=== PATIENT | female | born 1995 | race Caucasian/White ===

== ENCOUNTER 2024-05-06 14:59 | Inpatient (IN) | payer OTHER, SELFPAY ==
[2024-05-06] VITALS (65 sets, daily range): BP systolic 90–152; BP diastolic 47–122; PULSE 68–119; RESP 16–18; TEMP 36.4–37.3; O2SAT 81–100; BMI 35.3
[2024-05-06] MEDS: Lactated Ringers 1,000 ML 999 ML IV ×2 (15:15→16:20)
[2024-05-06 15:41] LABS: Absolute Lymphocyte Count 0.77 X10^3/uL (0.83-4.51); Absolute Neutrophil Count 9.7 X10^3/uL (2.0-7.7); Basophil# 0.02 X10^3/uL; Basophil% 0.2 % (0-1); Hematocrit 30.5 % (37-47); Hemoglobin 9.9 g/dL (12.0-15.0); Lymphocyte # 0.77 X10^3/ul (0.83-4.51); Mean Corp Hgb Conc 32.5 g/dL (32-36); Mean Corpuscular Hgb 25.6 pg (27.0-32.0); Mean Platelet Vol. 10.4 fl (6.2-12.0); Monocyte# 0.51 X10^3/uL; Monocyte% 4.6 % (0-10); NRBC Flagged by Analyzer 0 % (0-5); Neutrophil % 87.7 % (47-70); Platelet Count 228 K/mm3 (150-450); RBC Distribution Width CV 14.3 % (11.6-14.6); RBC Distribution Width SD 39.6 fl (35.1-43.9); Red Blood Count 3.86 M/mm3 (4.2-5.4); White Blood Count 11.1 K/mm3 (4.4-11.0)
[2024-05-06 16:28] LABS: HIV - WCH Non-Reactive (Nonreactive); Rubella IgG Reactive (Nonreactive); Syphilis Antibodies Non-reactive
[2024-05-06 16:38] LABS: Amphetamine Urine VISTA NEGATIVE (<1000 ng/mL); Barbiturate Urine VISTA NEGATIVE (< 200 ng/mL); Benzodiazepine Urine VISTA NEGATIVE (< 200 ng/mL); Cocaine Urine VISTA NEGATIVE (< 300 ng/mL); Ecstacy Urine VISTA NEGATIVE (< 500 ng/mL); Methadone Urine VISTA NEGATIVE (< 300 ng/mL); PCP Urine VISTA NEGATIVE (< 25 ng/mL); THC Urine VISTA NEGATIVE (< 50 ng/mL); Vista UDS pH Range 5
[2024-05-06] MEDS: fentaNYL-bupivacaine (epidural) 100 ML BAG EPIDURAL ×2 (17:02→21:23)
--- NOTE | 2024-05-06 17:43 | US_ITS ---
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 TECHNIQUE: Transabdominal TECHNICAL QUALITY: Adequate. FINDINGS: There is a single intrauterine fetus. The fetus is in a cephalic presentation. There is demonstrated cardiac activity with a heart rate of 154 bpm. There is a normal amniotic fluid volume. The largest amniotic fluid pocket measures 4.2 cm. The amniotic fluid index (SHIELA) is 6.5 cm. The placenta is not adequately seen. BIOMETRY: BPD: 10.4: Beyond ultrasound range HC: 36.7: Beyond ultrasound range AC: 37.4: 41 weeks 2 days. FL: 7.8: 39 weeks, 5 days Age by LMP: 41 weeks, 6 days. CARINE by LMP: 04/23/2024. Estimated weight: 4417 grams, +/- 663 grams. Gender: US/OB Limited With Biometrics IMPRESSION: Single live fetus in a vertex presentation. survey not performed on this exam. Cervical length is not visualized. Age by LMP: 41 weeks, 6 days. CARINE by LMP: 04/23/2024. Estimated weight: 4417 grams, +/- 663 grams. Electronically Signed: Bob Cortez MD at 20:06 EDT ,
--- NOTE | 2024-05-06 17:57 | HP.PCM.OB_ITS ---
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 presents today with complaints of pain and has been in labor since early this morning with no change. pt family reports has been 5cm since 11am. ? SROM earlier today. Pt reports has not had any ultrasound or routine lab work during this . Pt is declining GBS. PFSH PFSH Medical History Asthma Eczema Migraine Home Medications ?Medication ?Instructions ?Recorded ?Last Taken ?Type [id number] 250 1 tab PO ONCE 06/28/20 Unknown History mg-250 mg-65 mg tablet (Excedrin Extra Strength) crisaborole 2 % topical ointment 1 applic topical BID 06/28/20 Unknown History (Eucrisa) sertraline 25 mg tablet 25 mg PO DAILY #30 tabs 06/28/20 Unknown Rx Allergy/AdvReac Type Severity Reaction Status Date / Time Penicillins Allergy unknown Verified 05/30/22 12:04 Surgical History History of tonsillectomy Social History Smoking Status: Former smoker History Elective abortions Hx Para 0 Spontaneous abortions Hx # Term Pregnancies Ectopic pregnancies Hx # Pregnancies Multiple births # of living children NST FHR Rate Baby A Baseline: 145 Variability:: Moderate Accelerations:: 15 x 15 Decelerations:: Variable FHR Category:: Category I Uterine Activity:: q5min Vital Signs Vital Signs Vital Signs: 05/06/24 14:49 05/06/24 14:49 05/06/24 16:57 Pulse Rate 93 77 Blood Pressure 119/69 BP Systolic 119 BP Diastolic 69 Pulse Ox 05/06/24 16:57 05/06/24 16:59 05/06/24 16:59 Pulse Rate 119 H Blood Pressure BP Systolic BP Diastolic Pulse Ox 99 88 05/06/24 17:00 05/06/24 17:00 05/06/24 17:01 Pulse Rate 95 Blood Pressure 131/77 H 129/71 H BP Systolic 131 129 BP Diastolic 77 71 Pulse Ox 05/06/24 17:01 05/06/24 17:02 05/06/24 17:02 Pulse Rate 96 97 Blood Pressure BP Systolic BP Diastolic Pulse Ox 100 05/06/24 17:06 05/06/24 17:06 05/06/24 17:07 Pulse Rate 101 H 106 H Blood Pressure 129/70 H BP Systolic 129 BP Diastolic 70 Pulse Ox 05/06/24 17:07 05/06/24 17:11 05/06/24 17:11 Pulse Rate 102 H Blood Pressure 116/57 L BP Systolic 116 BP Diastolic 57 Pulse Ox 97 05/06/24 17:12 05/06/24 17:12 05/06/24 17:17 Pulse Rate 106 H Blood Pressure 152/122 H BP Systolic 152 BP Diastolic 122 Pulse Ox 99 05/06/24 17:17 05/06/24 17:17 05/06/24 17:22 Pulse Rate 106 H 102 H Blood Pressure BP Systolic BP Diastolic Pulse Ox 98 05/06/24 17:22 05/06/24 17:24 05/06/24 17:24 Pulse Rate 103 H Blood Pressure 100/50 L BP Systolic 100 BP Diastolic 50 Pulse Ox 98 05/06/24 17:26 05/06/24 17:26 05/06/24 17:27 Pulse Rate 93 92 Blood Pressure 99/50 L BP Systolic 99 BP Diastolic 50 Pulse Ox 05/06/24 17:27 05/06/24 17:32 05/06/24 17:32 Pulse Rate 97 Blood Pressure 112/58 L BP Systolic 112 BP Diastolic 58 Pulse Ox 100 05/06/24 17:32 05/06/24 17:32 05/06/24 17:33 Pulse Rate 98 93 Blood Pressure BP Systolic BP Diastolic Pulse Ox 97 05/06/24 17:33 05/06/24 17:37 05/06/24 17:37 Pulse Rate 83 Blood Pressure BP Systolic BP Diastolic Pulse Ox 89 99 05/06/24 17:38 05/06/24 17:38 05/06/24 17:40 Pulse Rate 84 111 H Blood Pressure 116/59 L BP Systolic 116 BP Diastolic 59 Pulse Ox 05/06/24 17:40 05/06/24 17:41 05/06/24 17:41 Pulse Rate 86 Blood Pressure 115/63 BP Systolic 115 BP Diastolic 63 Pulse Ox 94 05/06/24 17:42 05/06/24 17:42 05/06/24 17:47 Pulse Rate 89 98 Blood Pressure BP Systolic BP Diastolic Pulse Ox 99 05/06/24 17:47 05/06/24 17:48 05/06/24 17:48 Pulse Rate 93 Blood Pressure 123/62 H BP Systolic 123 BP Diastolic 62 Pulse Ox 93 05/06/24 17:48 05/06/24 17:51 05/06/24 17:51 Pulse Rate 102 H Blood Pressure 117/58 L BP Systolic 117 BP Diastolic 58 Pulse Ox 90 05/06/24 17:52 05/06/24 17:52 Pulse Rate 103 H Blood Pressure BP Systolic BP Diastolic Pulse Ox 100 Weight Weight: 87.7 kg Body Mass Index (BMI) 35.3 Physical Exam Narrative Bedside ultrasound: confirms vertex- membranes infront of head. VE: Bulging membranes- ballooning into vagina- No cord palpable. AROM perfomed light to moderate meconium - large amt. 6/70/-2. Const alert and oriented x3 General Appearance: cooperative HEENT normocephalic GI GI Narrative: Gravid, non tender to palpation. OB / External & Speculum: external exam normal Extremity normal to inspection Skin no rashes or lesions noted Neuro oriented x3 and CN's II-XII intact bilaterally Psych Appearance: grossly normal Labs Labs Labs: Antibody Screen NEGATIVE Hct 30.5 % (37-47) L Hgb 9.9 g/dL (12.0-15.0) L Obstetrics Ultrasound Syphilis Total Ab Non-reactive VZV IgG Antibody < 135 index (Immune >165) L Rubella IgG Antibody Reactive (Nonreactive) Hep Bs Antigen Non-Reactive (Nonreactive) Hepatitis C Antibody Non-Reactive (Nonreactive) HIV 1&2 Antibody Non-Reactive (Nonreactive) Miscellaneous Test Assessment & Plan (1) with 41 completed weeks gestation: (2) No care in current : QUALIFIERS: Trimester: third trimester Qualified Code(s): O09.33 - Supervision of with insufficient care, third trimester (3) Obesity affecting in third trimester: QUALIFIERS: Obesity type affecting : unspecified obesity Qualified Code(s): O99.213 - Obesity complicating , third trimester (4) Meconium in amniotic fluid affecting management of mother: QUALIFIERS: Fetus number: single or unspecified fetus Trimester: third trimester Qualified Code(s): O36.8930 - Maternal care for other specified problems, third trimester, not applicable or unspecified PLAN: Plan Admit to L&D Mont[facility] FHR/TOCO Epidural for pain Monitor VS Discussed augmenting with pitocin- will give 2 hrs to see if she makes cervical change. pt agreeable official ultrasound for Growth ordered /anomalies total weight gain in 23# Est Gest age 41-42 weeks - uncertain per patient Meconium- will have peds and respiratory present for delivery
[2024-05-06 18:03] LABS: Hepatitis B Surface Antigen Non-Reactive (Nonreactive); Hepatitis C Antibody Non-Reactive (Nonreactive)
[2024-05-06 18:29] LABS: Mucous, Urine 0 SEEN /hpf (<or=2+); Squamous Epithelial Cells - UA 0 SEEN /hpf (5-10)
[2024-05-06 18:32] LABS: Color, Urine Yellow (Yellow); Glucose, Dipstick Normal (Normal); Leukocyte Esterase-Dipstick Negative /ul (Negative); Nitrite-Dipstick Negative (Negative); Occult Blood-Urine 150 /ul (Negative); Protein-Dipstick Negative (Negative); Urine Bilirubin Dipstick Negative (Negative); Urine Clarity Clear (Clear); Urine Urobilinogen Normal (Normal)
[2024-05-06 18:53] LABS: Bacteria 1+ /hpf (None Seen); Ketone-Dipstick 150 mg/dl (Negative)
[2024-05-06 18:54] LABS: Red Blood Cells-Urine 0-5 SEEN /hpf (0-5); White Blood Cells 0-5 SEEN /hpf (0-5)
[2024-05-06] MEDS: Lactated Ringers 1,000 ML 200 ML IV (19:11)
--- NOTE | 2024-05-06 20:47 | PN.OBGYN_ITS ---
Subjective Subjective Patient continues to be evaluated at bedside. Comfortable with epidural anesthesia. Denies any pain. Objective Data Objective Data Vital Signs: Vital Signs Temp Pulse Resp BP Pulse Ox 99.1 F 107 H 16 115/62 100 05/06/24 19:23 05/06/24 19:51 05/06/24 19:23 05/06/24 19:45 05/06/24 19:51 Weight: 193 lb 5.526 oz Body Mass Index (BMI) 35.3 Intake & Output: Intake and Output for Last 24 Hours 05/04/24 05/05/24 05/06/24 23:59 23:59 23:59 Intake Total 1969.50 / 1969.50 Output Total 900 / 900 Balance 1069.50 / 1069.50 Lab / Micro Data 05/06/24 15:15 Labs: Laboratory Results - last 24 hr 05/06/24 15:15: WBC 11.1 H, RBC 3.86 L, Hgb 9.9 L, Hct 30.5 L, MCV 79.0 L, MCH 25.6 L, MCHC 32.5, RDW Std Deviation 39.6, RDW Coeff of Shahrzad 14.3, Plt Count 228, MPV 10.4, Immature Gran % (Auto) 0.500, Neut % (Auto) 87.7 H, Lymph % (Auto) 7.0 L, [place] % (Auto) 4.6, Eos % (Auto) 0.0, Baso % (Auto) 0.2, Absolute Neuts (auto) 9.7 H, Absolute Lymphs (auto) 0.77 L, Nucleated RBC % 0, Urine Color Yellow, Urine Clarity Clear, Urine pH 5.0, Ur Specific [place] 1.010, Urine Protein Negative, Urine Glucose (UA) Normal, Urine Ketones 150 A*, Urine Occult Blood 150 H, Urine Nitrite Negative, Urine Bilirubin Negative, Urine Urobilinogen Normal, Ur Leukocyte Esterase Negative, Urine RBC 0-5 SEEN, Urine WBC 0-5 SEEN, Ur Squamous Epith Cells 0 SEEN, Urine Bacteria 1+, Urine Mucus 0 SEEN, Urine Opiates Screen NEGATIVE, Urine Methadone Screen NEGATIVE, Ur Barbiturates Screen NEGATIVE, Ur Phencyclidine Scrn NEGATIVE, Ur Amphetamines Screen NEGATIVE, MDMA (Ecstasy) Screen NEGATIVE, U Benzodiazepines Scrn NEGATIVE, Urine Cocaine Screen NEGATIVE, U Cannabinoids Screen NEGATIVE, Ur Drug Screen Comment , Syphilis Total Ab Non-reactive, Hep Bs Antigen Non-Reactive, Hepatitis C Antibody Non- Reactive, HIV 1&2 Antibody Non-Reactive, Rubella IgG Antibody Reactive, Antibody Screen NEGATIVE Micro: Microbiology 05/06/24 15:15 Genital vaginal Chlamydia trachomatis (PCR) - Final 05/06/24 15:15 Genital vaginal Neisseria gonorrhoeae (PCR) - Final Radiography Diagnostic Testing: Radiology Impression Obstetrics Ultrasound 05/06/24 17:43 IMPRESSION: Single live fetus in a vertex presentation. survey not performed on this exam. Cervical length is not visualized. Age by LMP: 41 weeks, 6 days. CARINE by LMP: 04/23/2024. Estimated weight: 4417 grams, +/- 663 grams. Electronically Signed: Bob Cortez MD at 20:06 EDT , Physical Exam Const alert and no apparent distress General Appearance: cooperative and comfortable Exam Limitations: no limitations HEENT normocephalic Eyes General Eye: normal appearance of both eyes Neck full ROM General: normal visual inspection Chest Chest: symmetrical chest wall rise Resp normal respiratory effort and normal air movement Effort and Inspection: symmetric chest movement Auscultation: clear to auscultation bilaterally Cardio regular rate and regular rhythm GI normal to inspection, nondistended, normoactive bowel sounds Back/Spine normal ROM Extremity full ROM and no calf tenderness General Extremity: normal exam except as noted Skin no rashes or lesions noted Neuro CN's II-XII intact bilaterally Psych mental status grossly normal Assessment & Plan (1) Meconium in amniotic fluid affecting management of mother: QUALIFIERS: Fetus number: single or unspecified fetus Trimester: third trimester Qualified Code(s): O36.8930 - Maternal care for other specified problems, third trimester, not applicable or unspecified (2) Obesity affecting in third trimester: QUALIFIERS: Obesity type affecting : unspecified obesity Qualified Code(s): O99.213 - Obesity complicating , third trimester (3) No care in current : QUALIFIERS: Trimester: third trimester Qualified Code(s): O09.33 - Supervision of with insufficient care, third trimester (4) with 41 completed weeks gestation: PLAN: Plan CE 6.5/70/-2 - exam remains unchanged Unable to start Pitocin IV due to category 2 tracing at times Exam discussed with patient and Dr. Kiran viewing strip and involved with plan of care Will reevaluate and complete CE in 2 hours to determine vs PC/S - patient agrees with plan of care
[2024-05-06] MEDS: Acetaminophen 500 MG Tablet PO (22:37)
[2024-05-06] MEDS: Sodium Citrate/Citric Acid 30 ML UDC PO (22:37)
--- NOTE | 2024-05-06 22:39 | PCM.PN.BLA ---
Progress Note pt was checked by ANN Arango cervical exam unchanged. Pt was counseled on Primary cs and inability to start pitocin due to recurrent decelerations- category 2 tracing. No descent of head, EFW >4400Grams, prominent pubic arch- suspect CPD. Pt agreeable to proceed with primary cs. OR notified. PRE OP abx ordered.
[2024-05-06] MEDS: Cefazolin 2 GM in 0.9% Normal Saline (100mL Bag) 100 ML IV (22:45)
--- NOTE | 2024-05-06 23:31 | EX.PCM.OBRPT ---
Details Operative Information Date of Procedure: 05/06/24 Pre-Operative Diagnosis: Category 2 tracing, suspected CPD, arrest of dilation, Meconium, No care, 41-42 weeks gestation, Obesity in , anemia in Post-Operative Diagnosis: same, Live male , Indications for : Suspected cephalopelvic disproportion Indications Narrative: Contractions not adequate however due to category 2 FHR tracing unable to start pitocin, pt did not make cervical change past 6cm for >4hrs. 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 She was then placed in the supine position. She was prepped and draped in the normal sterile fashion. Epidural Anesthesia was found to be adequate. At this time a Pfannenstiel skin incision was made with a knife was carried down to the underlying layer of the fascia. The fascial incision was then extended laterally using gentle opposing traction. Attention was then turned to the superior aspect of the fascial edge was grasped with 2 straight Enmanuel clamps tented up and the rectus muscle dissected off sharply. Rectus muscles were then in the midline bluntly and peritoneum was entered bluntly. Gentle opposing traction was placed. At this time the vesicouterine peritoneum was identified. Scalpel was used to make a uterine incision in a low transverse fashion. The uterus was then entered bluntly gentle opposing traction was placed to extend this incision. thick meconium noted. Infant's head was brought to the uterine incision was delivered atraumatically. Body cord x 1 noted. Cord was clamped and cut infant handed to the waiting nursery team. The Placenta was removed from the uterus. The uterus was then removed from the abdominal cavity. The uterus was cleared of all clots and debris using a lap. At this time the uterine incision was reapproximated using #1 Vicryl in a running locked fashion. Hemostasis was appreciated. Posterior cul-de-sac was then cleared of all clots and debris. Uterus was placed back in the abdominal cavity. Gutters were cleared of all clots and debris. Uterine incision was reevaluated and noted to be of excellent hemostasis. At this time the peritoneum was grasped with Kellys reapproximated using #2 Vicryl suture in a running fashion. Rectus muscle reapproximated with 2-0 vicryl in running mattress suture fashion. Fascia was then reapproximated using #1 Vicryl in a running fashion. Subcu layer was irrigated with NS, reapproximated with #2 0 plain gut suture in an interrupted fashion. Subcu layer was closed using 4-0 Viryl in a subcu fashion. Dry sterile dressing was applied. Instrument lap needle count correct ?2. Anticipated normal postoperative course. Presentation: Positive for Vertex Amniotic Membrane Rupture Type: Spontaneous (? time at home - meconium ) Amniotic Fluid Description: Thick meconium Placental Delivery Description: Expressed Placenta Disposition: [facility] Cord Vessel Description: 3 Vessels Cord Entanglement: - (body cord x1 loose ) Nuchal Cord Compression: With compression Cord Gases: ABG and VBG Infant A Gender: Male (1 minute): 2 (5 minute): 8 Delayed Cord Clamping: No Complications Risks of Surgery Discussed w/Patient: Bleeding, Anesthesia Risks, Infection and Injury to surrounding structure(s) including bowel and bladder Complications: none
[2024-05-06] MEDS: Azithromycin 500 MG in Dextrose 5%-Water (250mL Bag) 250 ML 250 MG IV (23:50)
[2024-05-07] VITALS (17 sets, daily range): BP systolic 95–125; BP diastolic 54–79; PULSE 75–97; RESP 16; TEMP 36.5–37.1; O2SAT 94–100
[2024-05-07] MEDS: Oxytocin 15 Units/NS 250ml 15 UNITS/250 ML IV.SOLN 83 UNITS IV
[2024-05-07] MEDS: Ketorolac 30 MG/ML Syringe IV ×4 (00:43→18:11)
[2024-05-07] MEDS: Lactated Ringers 1,000 ML 100 ML IV (03:09)
[2024-05-07] MEDS: Acetaminophen 500 MG Tablet 1000 MG PO ×3 (04:53→18:10)
[2024-05-07 07:08] LABS: Hematocrit 26.2 % (37-47); Hemoglobin 8.4 g/dL (12.0-15.0); Mean Corp Hgb Conc 32.1 g/dL (32-36); Mean Corpuscular Hgb 25.8 pg (27.0-32.0); Mean Corpuscular Volume 80.6 fL (81-99); Mean Platelet Vol. 10.5 fl (6.2-12.0); Platelet Count 185 K/mm3 (150-450); RBC Distribution Width CV 14.5 % (11.6-14.6); RBC Distribution Width SD 40.6 fl (35.1-43.9); Red Blood Count 3.25 M/mm3 (4.2-5.4); White Blood Count 9.4 K/mm3 (4.4-11.0)
--- NOTE | 2024-05-07 08:21 | PCM.PN.CNM ---
Subjective Subjective Patient seen at bedside. Resting. Has not ambulated today. with support. Objective Data Objective Data Vital Signs: Vital Signs Temp Pulse Resp BP Pulse Ox O2 Del Method 98.3 F 80 16 106/66 97 Room Air 05/07/24 04:58 05/07/24 05:50 05/07/24 05:50 05/07/24 04:58 05/07/24 05:50 05/07/24 05:50 Oxygen Delivery Method Room Air Weight: 193 lb 5.526 oz Body Mass Index (BMI) 35.3 Intake & Output: Intake and Output for Last 24 Hours 05/05/24 05/06/24 05/07/24 23:59 23:59 23:59 Intake Total 2776.17 / 2776.17 505 / 505 Output Total 1500 / 1500 2900 / 2900 Balance 1276.17 / 1276.17 -2395 / -2395 Lab / Micro Data 05/07/24 06:53 Labs: Laboratory Results - last 24 hr 05/06/24 15:15: WBC 11.1 H, RBC 3.86 L, Hgb 9.9 L, Hct 30.5 L, MCV 79.0 L, MCH 25.6 L, MCHC 32.5, RDW Std Deviation 39.6, RDW Coeff of Shahrzad 14.3, Plt Count 228, MPV 10.4, Immature Gran % (Auto) 0.500, Neut % (Auto) 87.7 H, Lymph % (Auto) 7.0 L, [place] % (Auto) 4.6, Eos % (Auto) 0.0, Baso % (Auto) 0.2, Absolute Neuts (auto) 9.7 H, Absolute Lymphs (auto) 0.77 L, Nucleated RBC % 0, Urine Color Yellow, Urine Clarity Clear, Urine pH 5.0, Ur Specific [place] 1.010, Urine Protein Negative, Urine Glucose (UA) Normal, Urine Ketones 150 A*, Urine Occult Blood 150 H, Urine Nitrite Negative, Urine Bilirubin Negative, Urine Urobilinogen Normal, Ur Leukocyte Esterase Negative, Urine RBC 0-5 SEEN, Urine WBC 0-5 SEEN, Ur Squamous Epith Cells 0 SEEN, Urine Bacteria 1+, Urine Mucus 0 SEEN, Urine Opiates Screen NEGATIVE, Urine Methadone Screen NEGATIVE, Ur Barbiturates Screen NEGATIVE, Ur Phencyclidine Scrn NEGATIVE, Ur Amphetamines Screen NEGATIVE, MDMA (Ecstasy) Screen NEGATIVE, U Benzodiazepines Scrn NEGATIVE, Urine Cocaine Screen NEGATIVE, U Cannabinoids Screen NEGATIVE, Ur Drug Screen Comment , Syphilis Total Ab Non-reactive, Hep Bs Antigen Non-Reactive, Hepatitis C Antibody Non-Reactive, HIV 1&2 Antibody Non-Reactive, Rubella IgG Antibody Reactive, Antibody Screen NEGATIVE 05/07/24 05:52: WBC Cancelled, Corrected WBC Cancelled, RBC Cancelled, Hgb Cancelled, Hct Cancelled, MCV Cancelled, MCH Cancelled, MCHC Cancelled, RDW Std Deviation Cancelled, RDW Coeff of Shahrzad Cancelled, Plt Count Cancelled, MPV Cancelled, Diff Path Review Cancelled 05/07/24 06:53: WBC 9.4, RBC 3.25 L, Hgb 8.4 L, Hct 26.2 L, MCV 80.6 L, MCH 25.8 L, MCHC 32.1, RDW Std Deviation 40.6, RDW Coeff of Shahrzad 14.5, Plt Count 185, MPV 10.5 Micro: Microbiology 05/06/24 15:15 Genital vaginal Chlamydia trachomatis (PCR) - Final 05/06/24 15:15 Genital vaginal Neisseria gonorrhoeae (PCR) - Final Radiography Diagnostic Testing: Radiology Impression Obstetrics Ultrasound 05/06/24 17:43 IMPRESSION: Single live fetus in a vertex presentation. survey not performed on this exam. Cervical length is not visualized. Age by LMP: 41 weeks, 6 days. CARINE by LMP: 04/23/2024. Estimated weight: 4417 grams, +/- 663 grams. Electronically Signed: Bob Cortez MD at 20:06 EDT , ROS Eyes Eyes: Denies blurry vision, change in vision or spots in vision ENT HEENT: Denies dizziness or headache(s) Cardiovascular Cardiovascular: Denies abdominal pain, chest pain or dyspnea Respiratory/Chest Respiratory/Chest: Denies cough, dyspnea, shortness of breath at rest or shortness of breath with exertion Gastrointestinal Gastrointestinal: Denies abdominal pain, diarrhea or vomiting Genitourinary Genitourinary: Denies change in urinary stream, difficulty urinating or dysuria Musculoskeletal Musculoskeletal: Reports none Integumentary Integumentary: Denies rash Neurologic Neurologic: Denies dizziness, headache(s), memory loss or weakness Assessment & Plan (1) Status post delivery: (2) Care and examination of lactating mother: (3) Meconium in amniotic fluid affecting management of mother: QUALIFIERS: Fetus number: single or unspecified fetus Trimester: third trimester Qualified Code(s): O36.8930 - Maternal care for other specified problems, third trimester, not applicable or unspecified (4) Obesity affecting in third trimester: QUALIFIERS: Obesity type affecting : unspecified obesity Qualified Code(s): O99.213 - Obesity complicating , third trimester (5) No care in current : QUALIFIERS: Trimester: third trimester Qualified Code(s): O09.33 - Supervision of with insufficient care, third trimester (6) with 41 completed weeks gestation: PLAN: Plan POD 1 Primary C/S Pain control support Increase ambulation today
[2024-05-07] MEDS: 0.9% Saline Lock 10 ML Syringe IV (12:51)
[2024-05-07] MEDS: Enoxaparin 40 MG/0.4 ML Syringe SC (12:51)
[2024-05-08] MEDS: Ibuprofen 600 MG Tablet PO ×4 (00:17→21:08)
[2024-05-08] MEDS: Acetaminophen 500 MG Tablet 1000 MG PO ×4 (00:18→18:20)
[2024-05-08 00:30] VITALS: BP 114/81; PULSE 77; RESP 16; TEMP 36.3; O2SAT 99
[2024-05-08] MEDS: oxyCODONE 5 MG Tablet PO ×4 (03:24→20:03)
[2024-05-08 03:25] VITALS: BP 122/86; PULSE 88; RESP 16; TEMP 37.2; O2SAT 98
[2024-05-08] MEDS: Senna/Docusate Sodium 1 Tablet PO (09:15)
[2024-05-08 09:30] VITALS: BP 114/67; PULSE 68; RESP 14; TEMP 36.6; O2SAT 98
--- NOTE | 2024-05-08 09:32 | PCM.PN.CNM ---
Subjective Subjective Patient seen at bedside. Denies headache, vision changes, SOB or CP. Ambulating and voiding without difficulty. Passing flatus. Lochia decreased. Objective Data Objective Data Vital Signs: Vital Signs Temp Pulse Resp BP Pulse Ox O2 Del Method 99 F 88 16 122/86 H 98 Room Air 05/08/24 03:25 05/08/24 03:25 05/08/24 03:25 05/08/24 03:25 05/08/24 03:25 05/08/24 03:25 Oxygen Delivery Method Room Air Weight: 193 lb 5.526 oz Body Mass Index (BMI) 35.3 Intake & Output: Intake and Output for Last 24 Hours 05/06/24 05/07/24 05/08/24 23:59 23:59 23:59 Intake Total 2776.17 / 2776.17 1136.67 / 1136.67 Output Total 1500 / 1500 4300 / 4300 Balance 1276.17 / 1276.17 -3163.33 / -3163.33 Lab / Micro Data Attestation: I reviewed the patient's lab results. 05/07/24 06:53 Micro: Microbiology 05/06/24 15:15 Genital vaginal Chlamydia trachomatis (PCR) - Final 05/06/24 15:15 Genital vaginal Neisseria gonorrhoeae (PCR) - Final ROS Eyes Eyes: Denies blurry vision, spots in vision or tunnel vision ENT HEENT: Denies dizziness or headache(s) Cardiovascular Cardiovascular: Reports systems reviewed and no addt'l complaints, except as documented, dizziness and dyspnea Respiratory/Chest Respiratory/Chest: Reports systems reviewed and no addt'l complaints, except as documented Gastrointestinal Gastrointestinal: Reports systems reviewed and no addt'l complaints, except as documented Genitourinary Genitourinary: Reports systems reviewed and no addt'l complaints, except as documented Neurologic Neurologic: Denies abnormal speech, dizziness, headache(s), syncope or vertigo Psychiatric Psychiatric: Reports systems reviewed and no addt'l complaints, except as documented Physical Exam Const alert and no apparent distress General Appearance: cooperative Orientation / Consciousness: awake, oriented to person and oriented to place Exam Limitations: no limitations HEENT normocephalic Eyes General Eye: normal appearance of both eyes Neck full ROM Chest Chest: symmetrical chest wall rise Resp normal respiratory effort, normal air movement and clear to auscultation bilaterally Auscultation: clear to auscultation bilaterally Cardio regular rate and regular rhythm GI normal to inspection, nondistended, normoactive bowel sounds Uterus Palpation: uterus fundus firm Extremity full ROM and no calf tenderness Skin no rashes or lesions noted Neuro oriented x3 Psych mental status grossly normal and activity/motor behavior normal Assessment & Plan (1) Care and examination of lactating mother: (2) Status post delivery: PLAN: Plan POD 2 Primary C/S Infant in SCN for blood sugars/feeding concerns due to cleft palate / pumping Pain controlled Ambulating independently and voiding/ passing flatus Anticipate discharge tomorrow
[2024-05-08 09:38] LABS: Absolute Lymphocyte Count 1.08 X10^3/uL (0.83-4.51); Absolute Neutrophil Count 7.1 X10^3/uL (2.0-7.7); Basophil# 0.02 X10^3/uL; Basophil% 0.2 % (0-1); Eosinophil# 0.02 X10^3/uL; Eosinophils% 0.2 % (0-5); Hematocrit 27.6 % (37-47); Hemoglobin 8.6 g/dL (12.0-15.0); Lymphocyte # 1.08 X10^3/ul (0.83-4.51); Mean Corp Hgb Conc 31.2 g/dL (32-36); Mean Corpuscular Hgb 25.6 pg (27.0-32.0); Mean Corpuscular Volume 82.1 fL (81-99); Mean Platelet Vol. 10.4 fl (6.2-12.0); Monocyte# 0.68 X10^3/uL; Monocyte% 7.6 % (0-10); NRBC Flagged by Analyzer 0 % (0-5); Neutrophil # 7.13 X10^3/uL (2.7-7.7); Neutrophil % 79.6 % (47-70); Platelet Count 198 K/mm3 (150-450); RBC Distribution Width CV 14.7 % (11.6-14.6); RBC Distribution Width SD 42.4 fl (35.1-43.9); Red Blood Count 3.36 M/mm3 (4.2-5.4)
[2024-05-08 13:28] VITALS: BP 128/81; PULSE 83; RESP 14; TEMP 36.8; O2SAT 98
--- NOTE | 2024-05-08 14:45 | EX.CON.LACT ---
Assessment & Plan Assessment/Plan (1) Care and examination of lactating mother: PLAN: Plan as listed below. HPI Consult Data Date of Consult: 05/08/24 HPI Narrative HPI Narrative: DARRIN RODRÍGUEZ, is a 28 F who presents for pumping and latching assessment. History provided by the patient. [facility] Medical History Asthma Eczema Migraine Home Medications ?Medication ?Instructions ?Recorded ?Last Taken ?Type mwgloyy-tcahuaqyglhhq-ucupwmfr 250 1 tab PO ONCE 06/28/20 Unknown History mg-250 mg-65 mg tablet (Excedrin Extra Strength) crisaborole 2 % topical ointment 1 applic topical BID 06/28/20 Unknown History (Eucrisa) sertraline 25 mg tablet 25 mg PO DAILY #30 tabs 06/28/20 Unknown Rx Allergy/AdvReac Type Severity Reaction Status Date / Time Penicillins Allergy unknown Verified 05/30/22 12:04 Surgical History History of tonsillectomy Social History Smoking Status: Former smoker ROS Integumentary Integumentary: Reports other Details: attempting to latch q 3 hours baby in SCN, latching with shield and getting EBM/donor milk by syringe, baby has NG at this time as well, seeing Speech therapy tomorrow, patient concerned with pumping volumes (was getting 5-6 cc yesterday and now 1-2 today) Exam General alert Respiratory Respiratory: normal respiratory effort Skin normal color bilateral nipples slight pink Feeding Assessment Feeding Assessment Feed Type: Breastmilk and Donor Milk [place] Feeding Methods: Breast, Bottle, Cleft palate nipple and Alternative-syringe Position: Cross cradle Feeding Aids Currently Using: Nipple reed and Pumping Latch Score L - Latch Latch: Repeated attempts, holds nipple in mouth, stimulate to suck (1) A - Audible Swallowing Audible Swallowing: A few with stimulation (1) (also using syringe when latching ) T - Type of Nipple Type of Nipple: Everted (after stimulation) (2) C - Comfort (Breast/Nipple) Comfort (Breast/Nipple): Filling/reddened/small blisters/bruises/mild/moderate discomfort (1) H - Hold (Positioning) Hold (Positioning): Full assist (staff holds infant at breast) (0) (full assist by [facility] RN ) Total Score Total Score:: 5 Observation Feeding Observed:: Yes IBCLC Feeding Assessment Feeding Assessment Mother's feeding plans during 's hospitalization: Breastfeed Feeding Plan Feeding Plan: Will continue current plan in SCN, attempting to latch and practice with shield and then will work with cleft nipple and NG as needed. Getting evaluated by speech therapy tomorrow. Fitted for correct pump flange size and recommended 21. Also adjust pump settings and plan written out for patient. Interventions IBCLC/CLC Interventions: Nipple shield and Pumping Charges/Coding Visit Charges Inpatient E&M: 59662 Init Hosp L1
--- NOTE | 2024-05-08 17:05 | CASEMGMT ---
Social Work Assessment Labor and Delivery Unit Patient Address:[address] [place] [id number] Phone number: Date of Referral: 05/08/24 Time of Referral: 05:04 Referred By: Lisbet Broderick Date of Intervention: 05/08/24? Time of Intervention: 17:06 Reason for Referral: Mental Health History obtained from: Medical records, mother of baby (MOB) America Flores and father of baby (FOB) Yahir Flores. Household composition: MOB, FOB and baby/son Georgi (born 05/06/24) Patient's parent/guardian status:? MOB and FOB are and both will provide care to baby. Parents have been together for 7 years and for 2. Medical History: ?Neither MOB or FOB have any other children. Current was being monitored by 2 midwives (Veronica Maciel and her mother Trisha Maciel) and THEA didn?t? have routine care outside of her midwives.? THEA presented to the hospital after having been in active labor without progress for over 12 hours at home.? MOB reported she was exhausted. MOB ended up having to have a . Baby was born with a cleft palate which MOB stated may interfere with her ability to breastfeed.? MOB stated she will still plan on pumping and giving baby breastmilk however she can. Baby?s weight: 7 pounds, 10oz.? Apgars: 2 and 8. Milk Wagon Driver: Dr. Rosalind Bridges and Dr. Franko Bae. ? Educational Status: MOB: High School graduate. 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 MOB reported she?s going to be a stay at home mom.? FOB is also a High School graduate and went to trade school for welding.? FOB works horse race timer . ?? Financial Status: MOB and FOB reported their income is enough to meet the needs of their family at this time. Supplies: MOB and FOB reported they have everything they need for baby including but not limited to: Car seat, bassinet, clothing and diapers. Childcare/Caregiver(s): MOB was identified as the primary caregiver for baby as she is going to e a stay at home mom. Other family members and friends will be able to help as needed.? ? Transportation: Reliable.? MOB and FOB reported they drive and have reliable transportation to get their son to and from all of his doctor?s appointments. ?? Programs/Agencies Involved: None at this time. ?? Children Services/Legal Issues: Denied. ??? Behavioral Health Issues: ??Mental Health History: THEA reported she has a history of anxiety, depression and PTSD. THEA used to be involved with [facility] in [place] which she described as ?life changing?.? MOB reported her plan is to get re-involved with them now that she?s given . ?THEA reported she experienced increased levels of depression in April due to feeling a lot of pressure to be induced which she stated stressed her out so she began to withdraw. THEA reported she?s feeling better now that her son is born. JOVANI reported he may have experienced some anxiety when he was younger because he was an only child however denied any anxiety or any other mental health issues as an adult. ??Substance Use History: MOB and FOB reported occasional/social alcohol consumption however stated neither have drank since MOB became . Both denied any abuse. ?Family History: Not reported. ?Drug Screens: Negative? Family/Social Stressors:? Baby is currently in Special Care for an unknown amount of time. Support Systems: Strong.? MOB and FOB report a strong family network. Depression/Shaken Baby/Safe Sleeping: knockdown worker provided both verbal and written education to MOB and FOB in regards to PPD, Shaken Baby and Safe Sleeping.? Both verbalized they understood. ??? ASSESSMENT: Both MOB an FOB consented to social work visit. Patient?s brother and other visitors were leaving at the time of arrival. MGM stayed which MOB and FOB were both agreeable to. ?At the time of the visit, baby was in the Special Care Nursery.? MOB and FOB were very engaged during the visit and expressed an appreciation of education and resources.? knockdown worker observed positive interaction between everyone at the time of the visit and everyone appeared to be supportive and bonded to one another.? knockdown worker asked FOB and MGM to leave the room so hospice social worker could speak with MOB alone which everyone was agreeable to.? MOB denied any concerns of domestic violence, other mental health issues, drug or alcohol abuse.? MOB reported she feels safe at home and described her as a strong support. ? Safe Plan of Care for infant related to substance use: Not needed; N/A??? PLAN:? Measurement And Verification Engineer also provided written material on available community resources including Help Me Grow. No other services requested or indicated. Rosalind Larson, MUSEUM OR ZOO DIRECTOR, OUTSIDE REPAIRER SPECIAL
[2024-05-08 19:55] VITALS: BP 132/89; PULSE 73; RESP 16; TEMP 37.1; O2SAT 99
[2024-05-09] MEDS: Acetaminophen 500 MG Tablet 1000 MG PO ×3 (00:18→12:59)
[2024-05-09 01:49] VITALS: BP 133/75; PULSE 72; RESP 15; TEMP 36.5; O2SAT 100
[2024-05-09] MEDS: Ibuprofen 600 MG Tablet PO ×3 (02:51→15:59)
[2024-05-09] MEDS: oxyCODONE 5 MG Tablet PO ×2 (03:21→16:43)
--- NOTE | 2024-05-09 05:20 | NURSING ---
Reviewed and agreed with [place] NGUYỄN charting.
--- NOTE | 2024-05-09 07:14 | PCM.DC.SUM ---
Providers Date of Admission: 05/06/24 Primary Care Physician: No Primary Care Phys Consultations 05/08/24 14:31 Consult: Hansard Reporter Routine Consulting Provider: Cherelle Mcmillan NP Reason for Consult: baby cleft palate EMERGENT Consult: No MD Notified: Yes Date Notified: 05/08/24 Time Notified: 14:32 Method of Notification: Verbal Reason For Visit: PRIMARY C SECTION Diagnosis Discharge Diagnosis (1) Care and examination of lactating mother: Status: Acute Code(s): Z39.1 - Encounter for care and examination of lactating mother Plan POD 2 Primary C/S in SCN for blood sugars/feeding concerns due to cleft palate / pumping Pain controlled Ambulating independently and voiding/ passing flatus Anticipate discharge tomorrow Medications at Discharge Home Medications [id number]-odivryhzkazlp-qcertyjm 250 mg-250 mg-65 mg tablet (Excedrin Extra Strength) 1 tab PO ONCE 06/28/20 crisaborole 2 % topical ointment (Eucrisa) 1 applic topical BID 06/28/20 sertraline 25 mg tablet 25 mg PO DAILY #30 tabs 06/28/20 acetaminophen 500 mg tablet 1,000 mg (2 x 500 mg) PO Q6H #0 tabs 05/09/24 ibuprofen 600 mg tablet 600 mg PO Q6H #0 tabs 05/09/24 sennosides 8.6 mg-docusate sodium 50 mg tablet (Stimulant Laxative Plus) 1 - 2 tab PO DAILY #0 tabs 05/09/24 Hospital Course Operations section Procedures None Summary of Care Provided Minutes Spent on Discharge: 15 Hospital Course: Patient had section. Hospital course was uneventful. Physical Exam Narrative Patient seen at bedside. Ambulating and voiding without difficulty. Passing flatus. Showering and walking unit. Pumping and infant being fed via syringe due to cleft palate. Infant in SCN. Patient desires d/c and to remain hotel status. Plan is to follow up with [facility] for post . Const alert and no apparent distress General Appearance: cooperative and comfortable Exam Limitations: no limitations HEENT normocephalic Eyes General Eye: normal appearance of both eyes Neck full ROM General: normal visual inspection Chest Chest: symmetrical chest wall rise Resp normal respiratory effort and normal air movement Effort and Inspection: symmetric chest movement Auscultation: clear to auscultation bilaterally Cardio regular rate and regular rhythm GI normal to inspection, nondistended, normoactive bowel sounds Back/Spine normal ROM Extremity full ROM and no calf tenderness General Extremity: normal exam except as noted Skin no rashes or lesions noted Wound Narrative: Dressing is dry and intact. Neuro CN's II-XII intact bilaterally Psych mental status grossly normal Weight / BMI Weight Weight: 193 lb 5.526 oz Body Mass Index (BMI) 35.3 ABG / Lab / Microbiology Data 05/08/24 09:25 Laboratory: Laboratory Results - last 24 hr 05/08/24 09:25: WBC 9.0, RBC 3.36 L, Hgb 8.6 L, Hct 27.6 L, MCV 82.1, MCH 25.6 L, MCHC 31.2 L, RDW Std Deviation 42.4, RDW Coeff of Shahrzad 14.7 H, Plt Count 198, MPV 10.4, Immature Gran % (Auto) 0.400, Neut % (Auto) 79.6 H, Lymph % (Auto) 12.0 L, Barrow % (Auto) 7.6, Eos % (Auto) 0.2, Baso % (Auto) 0.2, Absolute Neuts (auto) 7.1, Absolute Lymphs (auto) 1.08, Nucleated RBC % 0 Microbiology: Microbiology 05/06/24 15:15 Genital vaginal Chlamydia trachomatis (PCR) - Final 05/06/24 15:15 Genital vaginal Neisseria gonorrhoeae (PCR) - Final D/C Instructions Discharge Diet: No restrictions Discharge Activity: May Drive (2 weeks) and May Shower May resume sexual activity in: 6-8 weeks Weight Bearing Status: Weight bearing as tolerated Lifting Restricted to (Lbs): 25 Call your doctor if your incision/area has: Continuous Slow Oozing, Sudden Increased Bleeding, Increased Pain/ Swelling, Increased Redness, Foul Smelling Discharge and Swelling at the incision site Call your doctor if you observe: Fever of 101 or Higher, Numbness or Tingling, Using more than 1 pad per hour, Shortness of breath, Dizziness, Swelling in the ankles, Chest pain, Calf discomfort and Uncontrolled pain Suture Line Care: Avoid Pulling/Pushing Remove Dressing in: 5 days (Remove yourself or call office and schedule appointment for dressing removal.) Additional Instructions: [phone] [facility] Call for appointment this week for incision check When: 5 days for dressing removal or 2 weeks for post appointment. Meaningful Use Info Meaningful Use Meaningful Use Diagnoses (Choose all that apply): None applicable Ischemic Stroke Statin Dosing Therapy Reference: STATIN DOSE THERAPY REFERENCE: * Patients > 75 years receive moderate or high dose statin therapy. * Patients 75 years or YOUNGER should receive HIGH intensity statin dose unless contraindicated. You will be required to document reason for non-treatment if statin daily dose does not meet guidelines. HIGH DOSE STATIN THERAPY DAILY Atorvastatin > than or = to 40 mg Rosuvastatin > than or = to 20 mg Amlodipine + Atorvastatin > than or = to 2.5/40 mg Ezetimibe + Simvastatin 10/80 mg Simvastatin 80mg Discharge Plan Admission Admit Date/Time: 05/06/24 14:59 Primary Reason for Your Visit: Labor and Delivery Attending Provider: Lisbet Broderick Primary Care Provider: Care Physician,No Primary Consulting Providers: Cherelle Mcmillan NP Discharge Orders/Prescriptions Prescriptions: New sennosides-docusate sodium [Stimulant Laxative Plus] 8.6-50 mg Tablet 1 - 2 tab PO DAILY Qty: 0 0RF acetaminophen 500 mg Tablet 1,000 mg PO Q6H Qty: 0 0RF ibuprofen 600 mg Tablet 600 mg PO Q6H Qty: 0 0RF Continued sertraline 25 mg tablet 25 mg PO DAILY Qty: 30 0RF No Action Eucrisa 2 % ointment 1 applic TOPICAL BID Excedrin Extra Strength 250-250-65 mg tablet 1 tab PO ONCE Referrals / Follow Up: Care Physician,No Primary [Primary Care Provider] - Shima Arango CNM [Med Staff - Adv Practice Prof] - Disposition Disposition (needs filled in before D/C Order can be placed): Home, Self Care
[2024-05-09 09:22] VITALS: BP 138/80; PULSE 85; RESP 17; TEMP 36.9
[2024-05-09] MEDS: Senna/Docusate Sodium 1 Tablet PO (10:00)
[2024-05-09 13:00] VITALS: BP 126/82; PULSE 100; RESP 18; TEMP 37; O2SAT 98
--- NOTE | 2024-05-09 16:26 | DCINST_ITS ---
Discharge Instructions Diet Discharge Diet: No restrictions Activity May resume sexual activity in: 6-8 weeks Weight Bearing Status: Weight bearing as tolerated Dressing / Incision Call your doctor if your incision/area has: Continuous Slow Oozing, Sudden Increased Bleeding, Increased Pain/ Swelling, Increased Redness, Foul Smelling Discharge and Swelling at the incision site Call your doctor if you observe: Fever of 101 or Higher, Numbness or Tingling, Using more than 1 pad per hour, Shortness of breath, Dizziness, Swelling in the ankles, Chest pain, Calf discomfort and Uncontrolled pain Suture Line Care: Avoid Pulling/Pushing Follow Up Care Test Results: Test results from this visit will be discussed in further detail at your follow- up appointment, if applicable. Discharge Plan Admission Admit Date/Time: 05/06/24 14:59 Primary Reason for Your Visit: Labor and Delivery Attending Provider: Lisbet Broderick Primary Care Provider: Care Physician,No Primary Consulting Providers: Cherelle Mcmillan NP Discharge Orders/Prescriptions Prescriptions: New sennosides-docusate sodium [Stimulant Laxative Plus] 8.6-50 mg Tablet 1 - 2 tab PO DAILY Qty: 0 0RF acetaminophen 500 mg Tablet 1,000 mg PO Q6H Qty: 0 0RF ibuprofen 600 mg Tablet 600 mg PO Q6H Qty: 0 0RF oxycodone 5 mg Tablet 5 - 10 mg PO Q4H PRN PRN (Reason: Pain Score 4-10) 3 Days Qty: 14 0RF Continued sertraline 25 mg tablet 25 mg PO DAILY Qty: 30 0RF No Action Eucrisa 2 % ointment 1 applic TOPICAL BID Excedrin Extra Strength 250-250-65 mg tablet 1 tab PO ONCE Referrals / Follow Up: Shima Arango CNM [Med Staff - Adv Practice Prof] - Care Physician,No Primary [Primary Care Provider] - Disposition Disposition (needs filled in before D/C Order can be placed): Home, Self Care
== END 2024-05-09 17:50 | disposition home or self-care (01) | DRG 788 ==
PROVIDERS: Advanced Practice Midwife; Admitting Provider Obstetrics & Gynecology; Referring Provider Obstetrics & Gynecology; Visit Provider Obstetrics & Gynecology
DX: O32.4XX0 Maternal care for high head at term, not applicable or unspecified (principal); O99.214 Obesity complicating childbirth; O33.9 Maternal care for disproportion, unspecified; O48.0 Post-term pregnancy; O69.2XX0 Labor and delivery complicated by other cord entanglement, with compression, not applicable or unspecified; Z3A.41 41 weeks gestation of pregnancy; O77.0 Labor and delivery complicated by meconium in amniotic fluid; Z87.891 Personal history of nicotine dependence; Z37.0 Single live birth
CPT/HCPCS: 59025; 59050; 76816; 80307; 81001; 85025; 85027; 86703; 86762; 86780; 86803; 86850; 86900; 86901; 87340; 87491; 87591; 99221; J7120; A4216; G0378; J2405

== ENCOUNTER → 2024-07-22 | Outpatient (CLI) | payer OTHER, SELFPAY ==
--- NOTE | 2024-07-22 11:37 | ECHOD_ITS ---
Reason For Study: FAM HX CONGENITAL HEART DEFECT Procedure This was a 2D Doppler, Color Flow transthoracic echocardiogram. Exam performed in department. Left Ventricle Normal LV size. Left ventricular systolic function is normal. The left ventricular ejection fraction is 65 %. Normal diastology for age. No regional wall motion abnormalities noted. Right Ventricle Normal RV size. Normal systolic function. Atria Normal left atrium. Normal right atrium. Mitral Valve Normal mitral valve. Tricuspid Valve Normal tricuspid valve. Mild tricuspid valve insufficiency. Pulmonary artery systolic pressure is 22 mmHg. Aortic Valve Trisinus/trileaflet aortic valve. Pulmonic Valve Normal pulmonic valve. Great Vessels Normal aortic root. The pulmonary artery is normal size. Inferior vena cava collapse with respiration. Pericardium/Pleural No pericardial effusion. MMode/2D Measurements & Calculations LVIDd: 4.3 cm IVSd: 0.68 cm Ao root diam: 2.7 cm LVIDs: 3.0 cm LVPWd: 0.81 cm RVDd: 2.7 cm FS: 30.3 % LAV(MOD-bp): 43.3 ml LVAd ap4: 26.1 cm2 LVAd ap2: 29.1 cm2 LAV(MOD-bp) Indexed: 25.6 ml/m2 LVLd ap4: 7.8 cm LVLd ap2: 8.0 cm LAV(MOD-sp2): 47.4 ml EDV(MOD-sp4): 71.9 ml EDV(MOD-sp2): 86.4 ml LAV(MOD-sp4): 40.2 ml EDV(sp4-el): 74.4 ml EDV(sp2-el): 89.6 ml LVAs ap4: 11.8 cm2 LVAs ap2: 16.0 cm2 LVLs ap4: 6.1 cm LVLs ap2: 6.7 cm ESV(MOD-sp4): 19.9 ml ESV(MOD-sp2): 31.3 ml ESV(sp4-el): 19.4 ml ESV(sp2-el): 32.5 ml EF(MOD-sp4): 72.3 % EF(MOD-sp2): 63.8 % EF(sp4-el): 73.9 % SV(MOD-sp4): 52.0 ml SV(MOD-sp2): 55.2 ml SV(sp4-el): 55.0 ml LA dimension(2D): 3.7 cm LA A4 area: 15.4 cm2 RA A4 area: 10.2 cm2 TAPSE: 2.0 cm Time Measurements MV dec time: 0.25 sec Doppler Measurements & Calculations MV E max clement: 71.1 cm/sec Lat Peak E' Clement: 16.8 cm/sec Med Peak E' Clement: 12.2 cm/sec MV A max clement: 45.4 cm/sec E/E' lat: 4.2 E/E' med: 5.8 MV E/A: 1.6 MV V2 max: 72.8 cm/sec MV P1/2t max clement: 72.8 cm/sec Ao V2 max: 146.1 cm/sec MV max P.1 mmHg MV P1/2t: 67.1 msec Ao max P.6 mmHg MV V2 mean: 31.5 cm/sec MV dec slope: 317.5 cm/sec2 Ao V2 mean: 102.1 cm/sec MV mean P.55 mmHg Ao mean P.8 mmHg MV V2 VTI: 18.5 cm MVA(P1/2t): 3.3 cm2 Ao V2 VTI: 31.4 cm AV (velocity ratio): 0.85 LV V1 max: 125.5 cm/sec PA V2 max: 109.1 cm/sec PI end-d clement: 80.2 cm/sec LV V1 max P.3 mmHg PA V2 mean: 75.3 cm/sec LV V1 mean P.3 mmHg LV V1 mean: 83.6 cm/sec LV V1 VTI: 26.6 cm TR max clement: 216.7 cm/sec TR max P.8 mmHg ECHO/Echo Complete Interpretation Summary Normal LV size. Left ventricular systolic function is normal. The left ventricular ejection fraction is 65 %. Structurally normal valves. Ordering Physician: La Prescott Referring Physician: La Prescott Performed By: Alesha Torres RDCS, RVT
== END | disposition home or self-care (01) ==
LOC: CVS 11:36
PROVIDERS: PCP Nurse Practitioner Family; Referring Provider Nurse Practitioner Family; Visit Provider Nurse Practitioner Family
DX: I36.1 Nonrheumatic tricuspid (valve) insufficiency (principal); Z82.79 Family history of other congenital malformations, deformations and chromosomal abnormalities
CPT/HCPCS: 93306

== ENCOUNTER 2024-09-14 04:11 | Observation (INO) | payer OTHER, SELFPAY ==
[2024-09-14] VITALS (15 sets, daily range): BP systolic 107–125; BP diastolic 64–87; PULSE 55–89; RESP 16–18; TEMP 36.6–37.2; O2SAT 97–99; BMI 30.7; BMI 33.4
--- NOTE | 2024-09-14 04:28 | CT_ITS ---
EXAM: CT ABDOMEN AND PELVIS WITH INTRAVENOUS CONTRAST CLINICAL INDICATION: RUQ pain TECHNIQUE: Helically acquired images were obtained of the abdomen and pelvis with intravenous contrast. This CT exam was performed using one or more of the following dose reduction techniques: automated exposure control, adjustment of the mA and/or kV according to patient size, and/or use of iterative reconstruction technique. CONTRAST: IV 100mL Isovue-370 RADIATION DOSE: CTDIvol = 13.89 mGy, DLP = 856.51 mGy-cm COMPARISON: No relevant prior studies available. FINDINGS: LOWER THORAX: Unremarkable. Lung bases are clear. No cardiomegaly. No significant pericardial effusion. ABDOMEN: LIVER: Unremarkable. Homogeneous. No focal mass. GALLBLADDER AND BILE DUCTS: The gallbladder is distended with a small amount of pericholecystic fluid. No intra- or extrahepatic biliary ductal dilation. PANCREAS: Unremarkable. No focal cystic or solid mass. SPLEEN: Unremarkable. Normal size without focal cystic or solid mass. ADRENALS: Unremarkable. No nodules. KIDNEYS AND URETERS: Unremarkable. Normal renal size and position. No hydronephrosis. STOMACH AND BOWEL: Unremarkable. No stomach or bowel distention. No focal inflammatory change. PELVIS: APPENDIX: The appendix is normal. BLADDER: Unremarkable. REPRODUCTIVE: Unremarkable as visualized. No mass. ABDOMEN and PELVIS: INTRAPERITONEAL SPACE: Unremarkable. No ascites or other fluid collection. No free air. BONES/JOINTS: Unremarkable. No suspicious lytic or blastic abnormality. SOFT TISSUES: Unremarkable. No discrete abdominal or pelvic wall hernia. VASCULATURE: Unremarkable. Abdominal aorta is non-dilated. LYMPH NODES: Unremarkable. No enlarged lymph nodes. CT/Abdomen/Pelvis W IV Cont ONLY IMPRESSION: The gallbladder is distended with a small amount of pericholecystic fluid. Findings may indicate acute cholecystitis. Consider ultrasound for further evaluation. Electronically Signed: Gabo Delgado MD at 5:58 EST ,
[2024-09-14 04:37] LABS: Absolute Lymphocyte Count 1.08 X10^3/uL (0.83-4.51); Basophil# 0.03 X10^3/uL; Basophil% 0.5 % (0-1); Eosinophil# 0.09 X10^3/uL; Eosinophils% 1.6 % (0-5); Hematocrit 38.6 % (37-47); Lymphocyte # 1.08 X10^3/ul (0.83-4.51); Lymphocyte % 19.4 % (19-41); Mean Corp Hgb Conc 33.7 g/dL (32-36); Mean Corpuscular Hgb 28.4 pg (27.0-32.0); Mean Corpuscular Volume 84.3 fL (81-99); Mean Platelet Vol. 10.4 fl (6.2-12.0); Monocyte# 0.39 X10^3/uL; NRBC Flagged by Analyzer 0 % (0-5); Neutrophil # 3.96 X10^3/uL (2.7-7.7); Platelet Count 265 K/mm3 (150-450); RBC Distribution Width CV 12.4 % (11.6-14.6); RBC Distribution Width SD 37.4 fl (35.1-43.9); Red Blood Count 4.58 M/mm3 (4.2-5.4); White Blood Count 5.6 K/mm3 (4.4-11.0)
[2024-09-14] MEDS: Ondansetron 4 MG/2 ML Vial IV ×2 (04:37→13:47)
[2024-09-14] MEDS: HYDROmorphone 1 MG/ML Syringe IV (04:37)
[2024-09-14] MEDS: 0.9% Normal Saline (1000mL) 1,000 ML 999 ML IV (04:37)
[2024-09-14 04:54] LABS: AST(SGOT) 16 U/L (15-37); Alanine Aminotransfer ALT/SGPT 21 U/L (13-56); Albumin, Serum 3.7 g/dL (3.2-5.0); Alkaline Phosphatase 60 U/L (45-117); Anion Gap 7 (5-15); BUN 22 mg/dL (7-18); BUN/Creat Ratio 32.7 RATIO (10-20); Bilirubin, Direct 0.12 mg/dL (0.00-0.30); Calcium,Total 9.3 mg/dL (8.5-10.1); Chloride 109 mmol/L (98-107); Creatinine, Serum 0.67 mg/dL (0.55-1.02); EST Glomerular Filtration Rate 111 mL/min (>60); Est Glom Filt Rate - Afr Amer 135 mL/min (>60); Estimated Creatinine Clearance 120.46 ml/min; Globulin 3.2 g/dL (2.2-4.2); Glucose 115 mg/dL (74-106); Lipase 38 U/L (13-75); Potassium 3.6 mmol/L (3.5-5.1); Protein, Total 6.9 g/dL (6.4-8.2); Sodium Level 140 mmol/L (136-145)
[2024-09-14 04:59] LABS: Internal QC Validated? YES +Cl - CLEAR BKGD; Pregnancy, Serum, hCG Quali. NEGATIVE Negative; Record Kit Lot#, Serum Preg. 872158
[2024-09-14 06:25] LABS: Bacteria 0 SEEN /hpf (None Seen); Mucous, Urine 0 SEEN /hpf (<or=2+); White Blood Cells 0 SEEN /hpf (0-5)
[2024-09-14 06:28] LABS: Color, Urine Yellow (Yellow); Glucose, Dipstick Normal (Normal); Ketone-Dipstick Negative (Negative); Leukocyte Esterase-Dipstick Negative /ul (Negative); Nitrite-Dipstick Negative (Negative); Occult Blood-Urine 250 /ul (Negative); Protein-Dipstick Negative (Negative); Specific Gravity, Urine 1.015 (1.002-1.030); Urine Bilirubin Dipstick Negative (Negative); Urine Clarity Sl. Cloudy (Clear); Urine Urobilinogen Normal (Normal)
[2024-09-14 06:33] LABS: Red Blood Cells-Urine 10-25 SEEN /hpf (0-5); Squamous Epithelial Cells - UA 0-5 SEEN /hpf (5-10)
--- NOTE | 2024-09-14 07:03 | US_ITS ---
STUDY: ABDOMINAL ULTRASOUND - RIGHT UPPER QUADRANT REASON FOR VISIT: Female, 28 years old Biliary colic / ? Acute cholecystitis TECHNIQUE: Ultrasound evaluation of the right upper quadrant was performed with real-time and static fermin-scale imaging. TECHNICAL QUALITY: Adequate. COMPARISON: Comparison is made with prior CT scan of the abdomen and pelvis done earlier today. FINDINGS: Liver: The liver measures 16.8 cm. There is normal echogenicity of the liver. The bile ducts are within normal limits. There is hepatic color flow. The direction of portal flow is hepatopetal. There is no demonstrated mass lesion. Gallbladder: There is a distended gallbladder. The gallbladder wall measures 2 mm. There is a positive sonographic Diaz''s sign. There is pericholecystic fluid. There are multiple echogenic structures within the gallbladder, consistent with multiple gallstones. Common Bile Duct (C.B.D.): The common bile duct measures 6 mm. Pancreas: Normal size of the head, body and tail of the pancreas. There is normal echogenicity of the pancreas. There is no demonstrated pancreatic mass or cyst. Right Kidney: Normal size of the right kidney. The right kidney measures 11.3 cm x 5 cm x 4 cm. Normal renal cortex. The right cortex measures 1.2 cm. There is no demonstrated renal mass or cyst. There is no right hydronephrosis. US/Gallbladder IMPRESSION: Distended gallbladder with multiple gallstones. Small pericholecystic fluid seen. Positive sonographic Diaz''s sign. Findings suggestive of acute cholecystitis. Electronically Signed: Maury Ugalde MD at 8:49 EST ,
--- NOTE | 2024-09-14 07:20 | EX.ED.DYSGE1 ---
HPI History of Present Illness Chief Complaint: Abd Pain Informant: patient Narrative Narrative: Patient is a 28-year-old female with past medical history of gallstones. She states she was seen at an outside hospital in June for right upper quadrant abdominal pain and at that time had an ultrasound performed which showed gallstones. She states that she was never able to follow-up with a general surgeon to discuss cholecystectomy. She states has been doing well without many breakthroughs as she avoids what she describes as her set off food. She states that last night she had chicken and perogies. She states she then developed pain in the right upper quadrant which she feels radiates towards her back and down towards her right hip. She states there is associated nausea without vomiting. She reports she took an oxycodone which she had from her previous ER visit but this did not help her symptoms at all and therefore she presents for evaluation. [facility] Medical History Care and examination of lactating mother Meconium in amniotic fluid affecting management of mother Obesity affecting in third trimester No care in current with 41 completed weeks gestation Eczema Migraine Asthma Home Medications ?Medication ?Instructions ?Recorded ?Last Taken ?Type oxycodone 5 mg tablet 5 - 10 mg (1 - 2 x 5 mg) PO Q4H 05/09/24 09/14/24 02:20 Rx PRN PRN Pain Score 4-10 3 days #14 tabs ondansetron 4 mg disintegrating 4 mg PO TID PRN nausea and 09/14/24 Unknown Rx tablet vomiting #21 tabs oxycodone 5 mg tablet 5 mg PO Q6H PRN pain 3 days #12 09/14/24 Unknown Rx tabs Allergy/AdvReac Type Severity Reaction Status Date / Time Penicillins Allergy unknown Verified 09/14/24 04:12 Surgical History History of tonsillectomy Social History Smoking Status: Current some day smoker tobacco type: e-cigarettes ROS ROS ED Constitutional Constitutional ED: Denies chills or fever(s) Eyes Eyes: Denies blurry vision or change in vision ENT ENT ED: Denies sore throat Cardiovascular Cardiovascular: Denies chest pain Respiratory/Chest Respiratory/Chest: Denies cough or dyspnea Gastrointestinal Gastrointestinal: Reports abdominal pain and nausea; Denies diarrhea or vomiting Genitourinary Genitourinary ED: Denies dysuria or urinary frequency Musculoskeletal Musculoskeletal: Reports back pain Integumentary Denies rash Neurologic Neurologic: Denies headache(s) Hematologic/Lymphatic Hematologic/Lymphatic: Denies easy bleeding or easy bruising EXAM Physical Exam Const Vital Signs: 09/14/24 04:12 09/14/24 04:14 09/14/24 05:29 Temperature 97.9 F 97.9 F 98.0 F Temperature Source Oral Oral Oral Pulse Rate 71 77 73 Respiratory Rate 17 18 16 Blood Pressure 117/80 117/80 107/68 Blood Pressure Mean 92 92 81 Pulse Ox 97 97 98 Oxygen Delivery Method Room Air Room Air Room Air 09/14/24 06:00 09/14/24 07:00 Temperature 97.8 F 98.2 F Temperature Source Oral Oral Pulse Rate 55 L 61 Respiratory Rate 16 16 Blood Pressure 107/69 124/85 H Blood Pressure Mean 81 98 Pulse Ox 99 99 Oxygen Delivery Method Room Air Room Air Positive well nourished and well developed General Appearance ED: well developed HEENT HEENT Narrative: No tongue or lip swelling no oral lesions no airway edema or compromise No signs of infection in the posterior pharynx Eyes PERRL and EOMs intact bilaterally General Eye ED: Negative for scleral icterus Neck supple Resp normal respiratory effort and clear to auscultation bilaterally Cardio regular rate and regular rhythm Rate: other Other Details: Regular rate and rhythm without murmurs rubs or gallops Radial and carotid pulses are equal and symmetric GI non-distended and no masses GI Narrative: Abdomen is soft and nondistended with normal active bowel sounds. There is pain with palpation in the right upper quadrant. Negative Diaz sign. No pulsatile mass or fluid wave noted. No peritoneal signs Auscultation: normoactive bowel sounds Palpation: soft Back/Spine Back/Spine Narrative: Mild right CVA pain is present Extremity normal to inspection Neuro oriented x3, CN's II-XII intact bilaterally and no sensory deficits noted Sensorium / Orientation: alert Motor Exam: strength 5/5 throughout Psych mental status grossly normal Skin no rashes or lesions noted and no wounds General Skin Exam: Negative for jaundice MDM MDM MDM Narrative Medical decision making narrative: Patient presented to the ER with stable vitals. She has known gallstones and her symptoms correlate with this. However with the patient reporting the pain is more intense than previous and also radiates towards the back and towards the groin there is concern for a UTI/pyelonephritis versus complication versus kidney stone versus acute cholecystitis or pancreatitis. Secondary to this I did elect to perform basic laboratory studies and a CT scan of the abdomen and pelvis with IV contrast. Labs and urine sample showed no clinically significant findings and CT scan showed changes consistent with early acute cholecystitis. The patient does not have a white count or fever and her liver enzymes are normal. Moreover this read is essentially equal/similar to the ultrasound from June of this year. I feel that as the CT from today's visit and the ultrasound from 2 to 3 months ago does not show any worsening of the pericholecystic fluid that this is most likely chronic in nature and not an acute infection. The case was discussed with general surgeon Dr. Block. She request a repeat ultrasound at this time for better delineation of acute cholecystitis or not. Therefore at this time as the ultrasound is still pending the patient will be signed out to the day physician Dr. Rouse. I do feel that if the ultrasound does not show signs of acute cholecystitis based on her negative workup she should otherwise be safe for discharge History & Record Review Discussion w/independent historian: Patient and Family Lab Data Attestation: I reviewed the patient's lab results. Labs: Laboratory Results - last 24 hr 09/14/24 09/14/24 04:20 06:16 WBC 5.6 RBC 4.58 Hgb 13.0 Hct 38.6 MCV 84.3 MCH 28.4 MCHC 33.7 RDW Std Deviation 37.4 RDW Coeff of Shahrzad 12.4 Plt Count 265 MPV 10.4 Immature Gran % (Auto) 0.500 Neut % (Auto) 71.0 H Lymph % (Auto) 19.4 [place] % (Auto) 7.0 Eos % (Auto) 1.6 Baso % (Auto) 0.5 Absolute Neuts (auto) 4.0 Absolute Lymphs (auto) 1.08 Nucleated RBC % 0 Sodium 140 Potassium 3.6 Chloride 109 H Carbon Dioxide 24.0 Anion Gap 7 BUN 22 H Creatinine 0.67 Estim Creat Clear Calc 120.46 Est GFR (MDRD) Af Amer 135 Est GFR (MDRD) Non-Af 111 BUN/Creatinine Ratio 32.7 H Glucose 115 H Calcium 9.3 Total Bilirubin 0.30 Direct Bilirubin 0.12 AST 16 ALT 21 Alkaline Phosphatase 60 Total Protein 6.9 Albumin 3.7 Globulin 3.2 Lipase 38 Serum , Qual NEGATIVE Urine Color Yellow Urine Clarity Sl. Cloudy Urine pH 6.0 Ur Specific Justin 1.015 Urine Protein Negative Urine Glucose (UA) Normal Urine Ketones Negative Urine Occult Blood 250 H Urine Nitrite Negative Urine Bilirubin Negative Urine Urobilinogen Normal Ur Leukocyte Esterase Negative Urine RBC 10-25 SEEN Urine WBC 0 SEEN Ur Squamous Epith Cells 0-5 SEEN Urine Bacteria 0 SEEN Urine Mucus 0 SEEN Radiography Diagnostic Testing: Clinical Impression(s) from Imaging Studies Abdomen/Pelvis CT 09/14/24 04:28 IMPRESSION: The gallbladder is distended with a small amount of pericholecystic fluid. Findings may indicate acute cholecystitis. Consider ultrasound for further evaluation. Electronically Signed: Gabo Delgado MD at 5:58 EST , Management Discussion w/another healthcare provider: Interior Design Program Chair Discharge Plan Triage Chief Complaint: Abd Pain ED Provider: Keanu Jackson Dx/Rx/DC Orders Clinical Impression: Cholelithiasis, Biliary colic Instructions: ED Gallstones with Biliary Colic Prescriptions: New oxycodone 5 mg tablet 5 mg PO Q6H PRN (Reason: pain) 3 Days Qty: 12 0RF ondansetron 4 mg tablet,disintegrating 4 mg PO TID PRN (Reason: nausea and vomiting) Qty: 21 0RF No Action oxycodone 5 mg Tablet 5 - 10 mg PO Q4H PRN PRN (Reason: Pain Score 4-10) 3 Days Qty: 14 0RF Primary Care Provider: [place] Referrals: Marianela Zhao MD [Med Staff - Active Staff] - [place], FOREIGN CORRESPONDENT-C [Primary Care Provider] - Activity Restrictions/Additional Instructions: Please follow-up with general surgery to discuss removal of your gallbladder. Eat smaller portions and avoid greasy fatty foods to prevent recurrent gallbladder spasms. You may take 1 or 2 oxycodone at a time if the spasm occurs. If the medication does not help reduce your pain over 30 minutes to 1 hour then return to the ER. Please also return if you have any further concerns. Print Language: South African
[2024-09-14] MEDS: HYDROmorphone 0.5 MG/0.5 ML SYRINGE IV (07:56)
[2024-09-14] MEDS: metroNIDAZOLE 500 MG/100 ML BAG 100 MG IV ×3 (09:46→21:14)
--- NOTE | 2024-09-14 09:58 | HP.PCM_ITS ---
HPI - General General Date of Admission: 09/14/24 Date of Service: 09/14/24 Chief Complaint: Abdominal pain HPI Narrative DARRIN RODRÍGUEZ, is a 28 F who presents with right upper quadrant pain. She notes this is her third gallbladder attack since June of this year. She notes 7 weeks post- she had right upper quadrant pain which radiated into her back. She states she went to [facility] ED, where she stayed for 4 hours and was noted to improve 4 hours after having Morphine. She notes it was recommended to follow-up with a general surgeon to have her gallbladder removed. She notes she never did as her new born baby boy has multiple health issues and she is caring for him. She notes a second attack in July. She notes this occurred at home and resolved with out any hospitalization. She notes both of these attacks occurred after having taco jeffery. She notes last nights attack occurred after having ravioli with tomato sauce. She notes feeling bloated with pain in the right upper quadrant. She notes the pain intensified at around 0200 AM this morning. She notes the pain continued even after taking an oxycodone left over from her . She notes associated nausea and dry heaving with pain radiating into the right back/side. She denies any bowel changes. She denies any change in color of her stool. She notes each gallbladder attack has intensified in pain. She notes a history of PAC's. 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 Most recent ECHO from 07/22 was unremarkable. She takes mineral supplements otherwise is overall healthy. She notes her appetite has been normal leading up to this attack. She denies any pulmonary concerns. She denies any previous anesthesia issues. Patient notes she is currently on her 3rd menstrual cycle since delivery. RUQ u/s obtained this morning demonstrates distended gallbladder with multiple gallstones, small amount of pericholecystic fluid, positive Diaz's sign. Findings suggestive of acute cholecystitis. Lab work unremarkable. Normal WBC and Normal liver enzymes. [facility] Medical History Care and examination of lactating mother Meconium in amniotic fluid affecting management of mother Obesity affecting in third trimester No care in current with 41 completed weeks gestation Eczema Migraine Asthma Home Medications ?Medication ?Instructions ?Recorded ?Last Taken ?Type oxycodone 5 mg tablet 5 - 10 mg (1 - 2 x 5 mg) PO Q4H 05/09/24 09/14/24 02:20 Rx PRN PRN Pain Score 4-10 3 days #14 tabs ondansetron 4 mg disintegrating 4 mg PO TID PRN nausea and 09/14/24 Unknown Rx tablet vomiting #21 tabs oxycodone 5 mg tablet 5 mg PO Q6H PRN pain 3 days #12 09/14/24 Unknown Rx tabs Allergy/AdvReac Type Severity Reaction Status Date / Time Penicillins Allergy unknown Verified 09/14/24 04:12 Surgical History History of tonsillectomy Social History Smoking Status: Current some day smoker tobacco type: e-cigarettes ROS Constitutional Constitutional: Reports systems reviewed and no addt'l complaints, except as documented Eyes Eyes: Reports systems reviewed and no addt'l complaints, except as documented ENT HEENT: Reports systems reviewed and no addt'l complaints, except as documented Cardiovascular Cardiovascular: Reports systems reviewed and no addt'l complaints, except as documented Respiratory/Chest Respiratory/Chest: Reports systems reviewed and no addt'l complaints, except as documented Gastrointestinal Gastrointestinal: Reports systems reviewed and no addt'l complaints, except as documented Genitourinary Genitourinary: Reports systems reviewed and no addt'l complaints, except as documented Musculoskeletal Musculoskeletal: Reports systems reviewed and no addt'l complaints, except as documented Integumentary Integumentary: Reports systems reviewed and no addt'l complaints, except as documented Neurologic Neurologic: Reports systems reviewed and no addt'l complaints, except as documented Psychiatric Psychiatric: Reports systems reviewed and no addt'l complaints, except as documented Endocrine Endocrinology: Reports systems reviewed and no addt'l complaints, except as documented Hematologic/Lymphatic Hematologic/Lymphatic: Reports systems reviewed and no addt'l complaints, except as documented Allergic/Immunologic Allergic/Immunologic: Reports systems reviewed and no addt'l complaints, except as documented Vital Signs Vital Signs Vital Signs: 09/14/24 04:12 09/14/24 04:14 09/14/24 05:29 Temperature 97.9 F 97.9 F 98.0 F Temperature Source Oral Oral Oral Pulse Rate 71 77 73 Respiratory Rate 17 18 16 Blood Pressure 117/80 117/80 107/68 Blood Pressure Mean 92 92 81 Pulse Ox 97 97 98 Oxygen Delivery Method Room Air Room Air Room Air 09/14/24 06:00 09/14/24 07:00 09/14/24 08:00 Temperature 97.8 F 98.2 F 98.6 F Temperature Source Oral Oral Oral Pulse Rate 55 L 61 89 Respiratory Rate 16 16 18 Blood Pressure 107/69 124/85 H 107/64 Blood Pressure Mean 81 98 78 Pulse Ox 99 99 98 Oxygen Delivery Method Room Air Room Air Room Air 09/14/24 09:00 09/14/24 09:23 Temperature 98.9 F 98.4 F Temperature Source Oral Pulse Rate 78 78 Respiratory Rate 16 16 Blood Pressure 112/76 114/64 Blood Pressure Mean 88 80 Pulse Ox 98 99 Oxygen Delivery Method Room Air Weight Weight: 167 lb 12.348 oz Body Mass Index (BMI) 30.7 Physical Exam Const alert, oriented x3 and no apparent distress HEENT normocephalic and head/scalp atraumatic Eyes PERRL Neck full ROM Lymph Lymphatic: no lymphadenopathy noted Resp normal respiratory effort and clear to auscultation bilaterally Cardio regular rate and regular rhythm GI GI Narrative: Abdomen- soft, tenderness in the RUQ with minimal amount of guarding. Hypoactive bowel sounds. no CVA tenderness Back/Spine no CVA tenderness Extremity normal to inspection Skin no rashes or lesions noted Neuro no focal motor deficits and no sensory deficits noted Psych mental status grossly normal and thought process normal Results Lab / Micro Data 09/14/24 04:20 09/14/24 04:20 Labs: Laboratory Results - last 24 hr 09/14/24 04:20: WBC 5.6, RBC 4.58, Hgb 13.0, Hct 38.6, MCV 84.3, MCH 28.4, MCHC 33.7, RDW Std Deviation 37.4, RDW Coeff of Shahrzad 12.4, Plt Count 265, MPV 10.4, Immature Gran % (Auto) 0.500, Neut % (Auto) 71.0 H, Lymph % (Auto) 19.4, [place] % (Auto) 7.0, Eos % (Auto) 1.6, Baso % (Auto) 0.5, Absolute Neuts (auto) 4.0, Absolute Lymphs (auto) 1.08, Nucleated RBC % 0, Sodium 140, Potassium 3.6, C hloride 109 H, Carbon Dioxide 24.0, Anion Gap 7, BUN 22 H, Creatinine 0.67, Estim Creat Clear Calc 120.46, Est GFR (MDRD) Af Amer 135, Est GFR (MDRD) Non-Af 111, BUN/Creatinine Ratio 32.7 H, Glucose 115 H, Calcium 9.3, Total Bilirubin 0.30, Direct Bilirubin 0.12, AST 16, ALT 21, Alkaline Phosphatase 60, Total Protein 6.9, Albumin 3.7, Globulin 3.2, Lipase 38, Serum , Qual NEGATIVE 09/14/24 06:16: Urine Color Yellow, Urine Clarity Sl. Cloudy, Urine pH 6.0, Ur Specific [place] 1.015, Urine Protein Negative, Urine Glucose (UA) Normal, Urine Ketones Negative, Urine Occult Blood 250 H, Urine Nitrite Negative, Urine Bilirubin Negative, Urine Urobilinogen Normal, Ur Leukocyte Esterase Negative, Urine RBC 10-25 SEEN, Urine WBC 0 SEEN, Ur Squamous Epith Cells 0-5 SEEN, Urine Bacteria 0 SEEN, Urine Mucus 0 SEEN Imaging Radiology Impression Abdomen/Pelvis CT 09/14/24 04:28 IMPRESSION: The gallbladder is distended with a small amount of pericholecystic fluid. Findings may indicate acute cholecystitis. Consider ultrasound for further evaluation. Electronically Signed: Gabo Delgado MD at 5:58 EST , Gallbladder Ultrasound 09/14/24 07:03 IMPRESSION: Distended gallbladder with multiple gallstones. Small pericholecystic fluid seen. Positive sonographic Diaz''s sign. Findings suggestive of acute cholecystitis. Electronically Signed: Maury Ugalde MD at 8:49 EST , Assessment & Plan Assessment/Plan (1) Cholelithiasis: QUALIFIERS: Cholelithiasis location: gallbladder Cholecystitis presence: with cholecystitis Cholecystitis acuity: acute Biliary obstruction: without biliary obstruction Qualified Code(s): K80.00 - Calculus of gallbladder with acute cholecystitis without obstruction (2) Biliary colic: PLAN: Plan I am seeing this patient in conjunction with Dr. Zhao. She will independently evaluate this patient. Patient is a 28 y/o F who presents with her 3rd gallbladder attack in 4 months. RUQ u/s demonstrating acute cholecystitis. Although lab work remains normal, patient is having right upper quadrant pain with possible suspicion of a gallstone in the neck of the gallbladder. We will plan to admit patient and start IV antibiotics and Protonix. Dr. Zhao will plan to perform a laparoscopic cholecystectomy with intraoperative cholangiogram tomorrow morning. Procedure details, risks and benefits have been explained. Patient has had the opportunity to ask and have questions answered. Patient verbally understands and agrees with the proposed plan. Thank you for allowing us to participate in this patient's care. Charges/Coding Visit Charges OBSV E&M: 06625 Observ/hosp same date L2
[2024-09-14] MEDS: levoFLOXacin IV 750 MG/150 ML BAG 100 MG IV (11:40)
[2024-09-14] MEDS: Acetaminophen 325 MG Tablet 650 MG PO ×2 (11:40→15:45)
[2024-09-14] MEDS: Pantoprazole Sodium 40 MG in 0.9% Normal Saline (100mL MB+) 100 ML 330 MG IV (13:47)
[2024-09-14] MEDS: 0.9% Normal Saline (1000mL) 1,000 ML 100 ML IV (13:47)
--- NOTE | 2024-09-14 15:34 | EKG12_ITS ---
Test Reason : P Blood Pressure : */* mmHG Vent. Rate : 70 BPM Atrial Rate : 70 BPM P-R Int : 162 ms QRS Dur : 86 ms QT Int : 388 ms P-R-T Axes : 27 23 22 degrees QTcB Int : 419 ms Normal sinus rhythm with sinus arrhythmia Low voltage QRS Borderline ECG When compared with ECG of 20-Oct-2006 14:28, PREVIOUS ECG IS PRESENT Confirmed by SUKI PINTO, KARI ([id number]), makeup editor PRIMITIVO ADAM ([id number]) on 09/21/2024 1:42:19 P M Referred By: Confirmed By: KARI COHN MD
[2024-09-14] MEDS: oxyCODONE 5 MG Tablet PO (19:40)
[2024-09-15] VITALS (12 sets, daily range): BP systolic 113–134; BP diastolic 66–97; PULSE 53–77; RESP 16–19; TEMP 36.1–36.7; O2SAT 94–100; BMI 33.5; BMI 33.4
--- NOTE | 2024-09-15 | GALL_PTH ---
PATIENT: DARRIN RODRÍGUEZ LOC: MS3 U#:[id number] AGE/SX: 28/F ROOM: [facility] RE09/14/[address]: Dr. 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 A benign pericystic lymph node. ZEV. 09/16/2024 MICROSCOPIC DESCRIPTION Slides are reviewed. GROSS DESCRIPTION Received is one container labeled with the patient's name and designated gallbladder. The specimen consists of a gallbladder measuring 7.5 cm in length and up to 4.0 cm in diameter. The external surface is pink-little, smooth and glistening for the most part. Focally it is granular, hemorrhagic and contains cautery artifact. The gallbladder contains green-yellow mucoid bile and multiple mulberry yellow stones measuring in aggregate 1.0 x 1.5 x 0.1 cm and <0.1 to 0.2 cm in greatest dimension. The mucosa also shows several yellowish streaks consistent with cholesterolosis. The mucosa is bile-stained and without any mass lesions. The gallbladder wall measures up to 0.1 cm in thickness. Also, present adjacent to the cystic duct is a pink congested nodule, a possible lymph node measuring 0.4cm in greatest dimension. Coding Compliance Manager sections from the gallbladder and the cystic duct and entire possible lymph node are submitted in one cassette. / SJ: 09/15/2024 TC:3 CPT: 47330
[2024-09-15] MEDS: 0.9% Normal Saline (1000mL) 1,000 ML 100 ML IV (02:16)
[2024-09-15] MEDS: metroNIDAZOLE 500 MG/100 ML BAG 100 MG IV (05:44)
[2024-09-15 06:44] LABS: ALB/GLOB Ratio 1.2 RATIO (0.9-2.4); AST(SGOT) 12 U/L (15-37); Alanine Aminotransfer ALT/SGPT 19 U/L (13-56); Albumin, Serum 3.3 g/dL (3.2-5.0); Alkaline Phosphatase 55 U/L (45-117); Anion Gap 3 (5-15); BUN 9 mg/dL (7-18); BUN/Creat Ratio 14.8 RATIO (10-20); Calcium,Total 8.7 mg/dL (8.5-10.1); Chloride 111 mmol/L (98-107); Creatinine, Serum 0.61 mg/dL (0.55-1.02); EST Glomerular Filtration Rate 125 mL/min (>60); Est Glom Filt Rate - Afr Amer 151 mL/min (>60); Estimated Creatinine Clearance 127.59 ml/min; Globulin 2.7 g/dL (2.2-4.2); Glucose 97 mg/dL (74-106); Potassium 3.5 mmol/L (3.5-5.1); Sodium Level 140 mmol/L (136-145)
[2024-09-15 07:31] LABS: Absolute Lymphocyte Count 1.28 X10^3/uL (0.83-4.51); Absolute Neutrophil Count 1.7 X10^3/uL (2.0-7.7); Basophil# 0.04 X10^3/uL; Basophil% 1.2 % (0-1); Eosinophil# 0.06 X10^3/uL; Eosinophils% 1.8 % (0-5); Lymphocyte # 1.28 X10^3/ul (0.83-4.51); Lymphocyte % 38.2 % (19-41); Mean Corp Hgb Conc 32.4 g/dL (32-36); Mean Corpuscular Hgb 28.1 pg (27.0-32.0); Mean Corpuscular Volume 86.7 fL (81-99); Mean Platelet Vol. 10.9 fl (6.2-12.0); NRBC Flagged by Analyzer 0 % (0-5); Neutrophil # 1.67 X10^3/uL (2.7-7.7); Neutrophil % 49.8 % (47-70); Platelet Count 216 K/mm3 (150-450); RBC Distribution Width CV 12.5 % (11.6-14.6); RBC Distribution Width SD 39.1 fl (35.1-43.9); Red Blood Count 3.92 M/mm3 (4.2-5.4); White Blood Count 3.4 K/mm3 (4.4-11.0)
--- NOTE | 2024-09-15 08:31 | NURSING ---
Pt taken down via bed to surgery at this time.
--- NOTE | 2024-09-15 08:39 | PCM.PRE.AN2 ---
ASA Classification* ASA Classification ASA Classification: 2 Assessment & Plan Anesthesia* Anesthesia Assessment Anesthesia Assessment: Discussed sedation and/or anesthesia options, risks, benefits, and alternatives with patient/parents/legal guardian/POA. Questions invited. The patient/parents/legal guardian/POA seems to understand and agrees to proceed with anesthesia plan. Reviewed the physical assessment, medical history, allergy history and patient home medications list prior to surgery/procedure/anesthetic and documented any changes. Performed airway and anesthesia risk assessments. Anesthesia Type Anesthesia Type: General Anesthesia Focused Assessment* Temperature: 98.0 F Pulse Rate: 77 Blood Pressure: 134/97 Respiratory Rate: 17 Pulse Ox: 100 Airway Assessment Mouth opens: >3 cm Mallampati Score: II Focused Labs Anesthesia Preop lab: CBC WBC 3.4 K/mm3 (4.4-11.0) L 09/15/24 05:31 RBC 3.92 M/mm3 (4.2-5.4) L 09/15/24 05:31 Hgb 11.0 g/dL (12.0-15.0) L 09/15/24 05:31 Hct 34.0 % (37-47) L 09/15/24 05:31 Plt Count 216 K/mm3 (150-450) 09/15/24 05:31 CHEMISTRY Potassium 3.5 mmol/L (3.5-5.1) 09/15/24 05:31 Sodium 140 mmol/L (136-145) 09/15/24 05:31 Magnesium 1.9 mg/dL (1.8-2.4) 02/01/15 10:37 BUN 9 mg/dL (7-18) 09/15/24 05:31 Creatinine 0.61 mg/dL (0.55-1.02) 09/15/24 05:31 Glucose 97 mg/dL (74-106) 09/15/24 05:31 TSH 1.25 uIU/mL (0.358-3.74) 02/01/15 10:37 COAG Tst Clinic Negative 06/28/20 11:17 Pre-Assessment Diagnosis/Proposed Procedure Planned Operative Procedure(s): LAPROSCOPIC ALLYN Anesthesia History Anesthesia History - software project manager: Anesthesia History - software project manager Hx Hospitalization Any Problems With Anesthesia No 09/14/24 20:08 Cholinesterase deficiency No 09/14/24 20:08 You/Your Family Experience No 09/14/24 20:08 fever (hyperthermia) with Relationship Recent Exposure to Contagious No 09/14/24 20:08 Disease Does patient have nerve No 09/14/24 20:08 stimulator Patient instructed to have No 09/14/24 20:08 device shut off --Does patient have Pacemaker No 09/15/24 08:20 or ICD? When Was Last Pacemaker Check QUESTION #4 FULL TEXT: You/Your Family Experience fever (hyperthermia) with Anesthesia Last Oral Intake Last Oral intake: Last Oral Intake NPO since 00:00 09/15/24 08:20 Meds taken in AM with sips of water? Meds patient instructed to take am of surgery PONV PONV - software project manager: PONV - software project manager Female HX of Motion Sickness HX of N/V After Surgery Non-Smoker Duration of Surgery greater than 60 minutes Number of Risk Factors PONV Score Height & Weight Height & Weight: Anesthesia: Height & Weight Height 5 ft 09/15/24 08:20 Weight: 77.6 kg 09/15/24 08:20 Body Mass Index (BMI) 33.4 09/15/24 08:20 Respiratory Assessment Respiratory Assessment - software project manager: Respiratory Tract Infection Hx - software project manager Hx Respiratory Tract Infection No 09/14/24 20:08 STOP Sleep Apnea STOP Sleep Apnea - software project manager: STOP Sleep Apnea - software project manager Hx Hypertension No 09/14/24 12:15 Hx Sleep Apnea No 09/14/24 12:15 CPAP BIPAP Do you snore loudly (louder No 09/14/24 12:15 than talking or can be heard Do you often feel tired/ No 09/14/24 12:15 fatigued/ sleepy during daytime? Has anyone observed you stop No 09/14/24 12:15 breathing during sleep? STOP Results Negative 09/14/24 12:15 QUESTION #5 FULL TEXT : Do you snore loudly (louder than talking or can be heard through closed doors)? Tobacco Use History Tobacco Use History - software project manager: Tobacco Use History - software project manager Tobacco Use Smoking Status Current some day smoker 09/14/24 12:15 Hx Tobacco Use No 09/14/24 12:15 Years Smoking Packs Smoked per Day Smoking Cessation Date was within the last 15 years Hx Smoking Cessation Date Hx Smoking Cessation Counseling Hematologic Medial History Hematologic Hx - software project manager: Hematologic Medical Hx - procedure tech Hx of Blood Transfusion No 09/14/24 12:15 Hx of Transfusion in last 3 No 09/14/24 12:15 Months Date of Last Transfusion (if within last 3 months) Ever experience any problems No 09/14/24 12:15 with transfusion(s)? Specify any problems Hx of Preganancy in last 3 No 09/14/24 12:15 Months Nurse Filling Out Transfusion RKALIKASI 09/14/24 12:15 & Questions: Date: 09/14/24 09/14/24 12:15 Time: 12:30 09/14/24 12:15 Patient unable to answer at this time (ie. confused, unrespo /Reproduction History /Reproductive History - software project manager: /Reproductive Hx- software project manager Hx Now No 09/14/24 20:08 Gestational Age (in weeks): EDC: Hx Hx Para Hx Section SAB No 09/14/24 20:08 Active Medications Active Medications: Current Medications Generic Name Dose Route Start Last Admin Trade Name Freq PRN Reason Stop Dose Admin Acetaminophen 650 mg 09/14/24 12:31 09/14/24 15:45 Acetaminophen 325 Mg Tablet PO 650 mg Q6H PRN PRN Administration Pain 1-10 Or Fever >100.7 Hydromorphone HCl 0.5 - 1 mg 09/14/24 12:31 Hydromorphone 1 Mg/Ml Syringe IV Q3H PRN PRN Pain Score 6-10 Hydromorphone HCl 0.5 - 1 mg 09/14/24 12:37 Hydromorphone 0.5 Mg/0.5 Ml Syringe IV Q3H PRN PRN Pain Score 6-10 Sodium Chloride 1,000 mls @ 100 mls/hr 09/14/24 12:31 09/15/24 08:34 IV 09/15/24 18:30 0 mls/hr .Q10H [facility] Infusion Protocol Levofloxacin 750 mg in 150 mls @ 100 mls/hr 09/15/24 10:00 Levaquin Iv IV Q24 FREDDIE Metronidazole 500 mg in 100 mls @ 100 mls/hr 09/14/24 15:00 09/15/24 06:51 Flagyl IV Infused Q8 [facility] Infusion Sodium Chloride 100 mls @ 15 mls/hr 09/14/24 12:33 IV .Q6H40M PRN Additional IVPB Infusion Sodium Chloride 100 mls @ 15 mls/hr 09/14/24 12:33 IV .Q6H40M PRN Saline Flush Pantoprazole Sodium 40 mg/ 110 mls @ 330 mls/hr 09/14/24 13:05 09/14/24 14:16 Sodium Chloride IV Infused Q24 [facility] Infusion Sodium Chloride 1,000 mls @ 15 mls/hr 09/15/24 08:40 IV 09/20/24 21:59 .Q48H [facility] Protocol Ondansetron HCl 4 mg 09/14/24 12:31 09/14/24 13:47 Ondansetron 4 Mg/2 Ml Vial IV 4 mg Q8H PRN PRN Administration NAUSEA/VOMITING Oxycodone HCl 5 mg 09/14/24 12:31 09/14/24 19:40 Oxycodone 5 Mg Tablet PO 5 mg Q4H PRN PRN Administration Pain Score 4-10 Sodium Chloride 10 - 40 ml 09/14/24 12:33 0.9% Saline Lock 10 Ml Syringe IV UD PRN SALINE FLUSH PFSH Medical History Care and examination of lactating mother Meconium in amniotic fluid affecting management of mother Obesity affecting in third trimester No care in current with 41 completed weeks gestation Eczema Migraine Asthma Home Medications ?Medication ?Instructions ?Recorded ?Last Taken ?Type oxycodone 5 mg tablet 5 - 10 mg (1 - 2 x 5 mg) PO Q4H 05/09/24 09/14/24 02:20 Rx PRN PRN Pain Score 4-10 3 days #14 tabs ondansetron 4 mg disintegrating 4 mg PO TID PRN nausea and 09/14/24 Unknown Rx tablet vomiting #21 tabs oxycodone 5 mg tablet 5 mg PO Q6H PRN pain 3 days #12 09/14/24 Unknown Rx tabs Allergy/AdvReac Type Severity Reaction Status Date / Time amoxicillin (From Augmentin) Allergy Diarrhea Verified 09/14/24 12:38 clavulanic acid (From Allergy Diarrhea Verified 09/14/24 12:38 Augmentin) Surgical History Status post delivery History of tonsillectomy Social History Smoking Status: Current some day smoker tobacco type: e-cigarettes Review of Systems (Anesthesia) ROS Narrative System reviewed and no additional complaints, except as documented.
[2024-09-15] MEDS: 0.9% Normal Saline (1000mL) 1,000 ML 15 ML IV (08:42)
[2024-09-15] MEDS: levoFLOXacin IV 750 MG/150 ML BAG 100 MG IV (09:33)
--- NOTE | 2024-09-15 09:40 | RAD_ITS ---
STUDY: INTRAOPERATIVE CHOLANGIOGRAM. REASON FOR EXAM: Female, 28 years old. LAP ALLYN W/ IOC FLUOROSCOPY TIME (if supplied): ( 7 seconds ) minutes/seconds. 3.33 mGy. TECHNIQUE: An intraoperative cholangiogram was performed by the surgeon. Imaging was submitted. COMPARISON: None. FINDINGS: The intra and extrahepatic biliary ducts are unremarkable. No intraluminal filling defect is seen. There is free flow of contrast into the duodenum. Gallstones are seen within the gallbladder lumen. RAD/Cholangiogram/ O R,Initial IMPRESSION: Unremarkable intraoperative cholangiogram. Gallstones. Electronically Signed: Maury Ugalde MD at 9:57 EST ,
[2024-09-15] MEDS: Bupivacaine Mpf 0.5% 30 ML VIAL (10:30)
--- NOTE | 2024-09-15 10:51 | PCM.POST.ANE ---
Anesthesia: Postop Eval I Current Vital Signs Temperature: 97.7 F Pulse Rate: 60 Blood Pressure: 133/85 Respiratory Rate: 18 Pulse Ox: 94 Assessment Airway patent: Yes Spontaneous unlabored respirations: Yes nausea: No Vomiting: No Anesthesia Complication: No Fluid Hydration Crystalloid volume administer (ml): 1,000 Total IV fluid infused: 1,000 Progress Note Anesthesia document: Postop Eval 1 completed: Yes
--- NOTE | 2024-09-15 11:06 | POSTOPAN2_ITS ---
Anesthesia Postop Eval I Sum Postop Eval Completion status Anesthesia document: Postop Eval 1 completed: Yes Anesthesia Postop Eval I Summary Anesthesia Postop Eval I Summary: Anesthesia Postop Eval I: Assessment Summary Airway patent Yes 09/15/24 10:51 GRADER OPERATOR.CSIR Spontaneous unlabored Yes 09/15/24 10:51 GRADER OPERATOR.CSIR respirations Mental status nausea No 09/15/24 10:51 GRADER OPERATOR.CSIR Vomiting No 09/15/24 10:51 GRADER OPERATOR.CSIR Anesthesia Postop Eval I: Fluid Summary Crystalloid volume administer 1,000 09/15/24 10:51 GRADER OPERATOR.CSIR (ml) Colloids volume administered ( ml) Blood Product volume administered (ml) Total IV fluid infused 1,000 09/15/24 10:51 GRADER OPERATOR.CSIR Anesthesia Postop Eval I: Summary Notes Anesthesia Complication No 09/15/24 10:51 GRADER OPERATOR.CSIR Anesthesia Complication Comment: Post-operative progress note Anesthesia: Postop Eval II Evaluation Mental status: Awake Pain Level: 0 nausea: No Vomiting: No
--- NOTE | 2024-09-15 11:06 | PCM.POSTANE2 ---
Anesthesia Postop Eval I Sum Postop Eval Completion status Anesthesia document: Postop Eval 1 completed: Yes Anesthesia Postop Eval I Summary Anesthesia Postop Eval I Summary: Anesthesia Postop Eval I: Assessment Summary Airway patent Yes 09/15/24 10:51 SECTION CREWS ACTIVITIES CLERK.CSIR Spontaneous unlabored Yes 09/15/24 10:51 SECTION CREWS ACTIVITIES CLERK.CSIR respirations Mental status nausea No 09/15/24 10:51 SECTION CREWS ACTIVITIES CLERK.CSIR Vomiting No 09/15/24 10:51 SECTION CREWS ACTIVITIES CLERK.CSIR Anesthesia Postop Eval I: Fluid Summary Crystalloid volume administer 1,000 09/15/24 10:51 SECTION CREWS ACTIVITIES CLERK.CSIR (ml) Colloids volume administered ( ml) Blood Product volume administered (ml) Total IV fluid infused 1,000 09/15/24 10:51 SECTION CREWS ACTIVITIES CLERK.CSIR Anesthesia Postop Eval I: Summary Notes Anesthesia Complication No 09/15/24 10:51 SECTION CREWS ACTIVITIES CLERK.CSIR Anesthesia Complication Comment: Post-operative progress note Anesthesia: Postop Eval II Evaluation Mental status: Awake Pain Level: 0 nausea: No Vomiting: No
--- NOTE | 2024-09-15 11:17 | OP.PCM_ITS ---
Operative Report (Standard) Operative Information Date of Procedure: 09/15/24 Pre-Operative Diagnosis: Acute cholecystitis Post-Operative Diagnosis: Same Surgery/Procedure Performed: Laparoscopic cholecystectomy with cholangiograms net software architect: Yes Aquatic Physiotherapist: Serene Gilmore Tasks completed by first officer and flight instructor: Opening & closing and Retracting Type of Anesthesia: General/Supplemental RN Documented Start/Stop Times: Operation Date: 09/15/24 09:30 Case Time Into Pre-Op 09/15/24 08:36 Out of Pre-Op 09/15/24 09:08 Anesthesia Start 09/15/24 09:14 Into Room 09/15/24 09:14 Procedure Start 09/15/24 09:35 Procedure End 09/15/24 10:41 Anesthesia End 09/15/24 10:49 Out of Room 09/15/24 10:49 Into Recovery 09/15/24 10:50 Procedure Start Time: 09:35 Procedure Stop Time: 10:41 Select all DRAINS/GRAFTS/IMPLANTS that apply: None Special Medications: Levofloxacin 750 mg IV every 24, Flagyl 500 mg IV every 8 for acute cholecystitis Estimated Blood Loss: < 10 Specimen collected: Yes Description of specimen(s) removed: Gallbladder Description of surgery: Indications: this is a 28 year-old female who developed abdominal pain/nausea/vomiting and on workup was found to have cholelithiasis, acute cholecystitis on imaging, with a normal common bile duct. Laparoscopic cholecystectomy was elected. Description procedure: The patient was placed on operating table in supine position. A timeout was completed verifying correct patient, procedure, site, position and special equipment prior to beginning procedure. General Anesthesia was induced. The abdomen was prepped and draped in usual sterile fashion. An incision was made in the natural skin line above the umbilicus. The fascia was elevated and incised. The peritoneum was elevated and incised. Entry into the peritoneum was confirmed visually and no bowel was noted in the vicinity of the incision. Villagran trocar was placed. The abdomen was insufflated with carbon dioxide to a pressure of 12-15 mmHg. Patient tolerated insufflation well. The laparoscope was then inserted and abdomen inspected. No injuries from initial trocar placement were noted. Additional trochars were then inserted in the following locations 5 mm trocar in the epigastrium and 2 more 5 mm trochars along the right costal margin. The abdomen was inspected no abnormalities were found. The table is placed in reverse Trendelenburg position with the right side up. The dome of the gallbladder was grasped with atraumatic grasper passed through the lateral port and retracted over the dome of the liver. Infundibulum was then grasped with atraumatic grasper through the midclavicular port and retracted to the right lower quadrant. This maneuver exposed Calot's triangle. The peritoneum overlying the gallbladder infundibulum was then incised and cystic duct and artery identified and circumferentially dissected. Santacruz catheter was used for cholangiograms. The cholangiogram showed good filling of the common bile duct into the duodenum with no filling defects, good filling of the right and left bile ducts as well. The cystic duct and artery were then doubly clipped and divided close to the gallbladder. The gallbladder then dissected from its peritoneal attachments by electrocautery. Hemostasis was checked and the gallbladder and contained stones were removed using the endoscopic retrieval bag through the umbilical port. The gallbladder is passed off table as specimen. The gallbladder fossa was irrigated with saline and hemostasis obtained. There is no evidence of bleeding from the gallbladder fossa or cystic artery leakage of bile from the cystic duct stump. Secondary trochars removed under direct vision. No bleeding was noted the trocar sites. The laparoscope was withdrawn and umbilical trocar removed. The abdomen was allowed to collapse. The fascia of the 12 mm trocar was closed with a [id number] Vicryl suture. The skin was closed with sutures of 4-0 Monocryl and Steri-Strips. The patient was extubated. The patient tolerated procedure well and was taken to the postanesthesia care unit in stable condition. Surgical Findings: Normal cholangiograms Complications Complications: No
--- NOTE | 2024-09-15 11:18 | SUR.PHASEI ---
Patient put her contacts back in.
[2024-09-15] MEDS: Pantoprazole Sodium 40 MG in 0.9% Normal Saline (100mL MB+) 100 ML 330 MG IV (11:41)
[2024-09-15] MEDS: HYDROmorphone 1 MG/ML Syringe IV (12:54)
[2024-09-15] MEDS: 0.9% Saline Lock 10 ML Syringe IV (12:55)
[2024-09-15] MEDS: oxyCODONE 5 MG Tablet PO (14:27)
[2024-09-15] MEDS: HYDROmorphone 0.5 MG/0.5 ML SYRINGE IV (14:32)
[2024-09-15] MEDS: SimETHICONE 80 MG Chewable Tablet PO (16:33)
== END 2024-09-15 16:30 | disposition home or self-care (01) ==
LOC: ED 09:34 → MS3 11:57
PROVIDERS: Physician Assistant; Admitting Provider Surgery; Emergency Provider Emergency Medicine; PCP Nurse Practitioner Family; Visit Provider Surgery
PROC: (CPT 47610; principal; 2024-09-15 09:10)
DX: K80.66 Calculus of gallbladder and bile duct with acute and chronic cholecystitis without obstruction (principal); K80.12 Calculus of gallbladder with acute and chronic cholecystitis without obstruction; J45.909 Unspecified asthma, uncomplicated; F17.290 Nicotine dependence, other tobacco product, uncomplicated
CPT/HCPCS: 47563; 00790; 36415; 74177; 74300; 76000; 76705; 80048; 80053; 80076; 81001; 83690; 84703; 85025; 88304; 93005; 94668; 96361; 96365; 96366; 96367; 96375; 96376; 97802; 99221; 99284; Q9967; A4216; G0378; J2405

== ENCOUNTER → 2025-09-04 | Outpatient (CLI) | payer OTHER, SELFPAY ==
[2025-09-04 17:00] LABS: Cholesterol 149 mg/dL (<=200); Low Density Lipoprotein Calc. 95 mg/dL; Triglycerides 88 mg/dL; Very Low Density Lipoprotein 18 mg/dL (5-40); cholesterol:hdl ratio screen 3.95
[2025-09-04 17:12] LABS: hCG Titer Quant., Serum < 1 mIU/mL (<9 non-preg)
== END | disposition home or self-care (01) ==
LOC: VSLAB 12:02
PROVIDERS: PCP Nurse Practitioner Family; Referring Provider Nurse Practitioner Family; Visit Provider Nurse Practitioner Family
DX: N92.6 Irregular menstruation, unspecified (principal); E78.5 Hyperlipidemia, unspecified
CPT/HCPCS: 36415; 80061; 84702